=== PATIENT | female | born 1955 | race Caucasian/White ===

== ENCOUNTER → 2018-03-04 13:00 | Outpatient (POV) | payer OTHER, SELFPAY | PROVIDERS: Visit Provider Dermatology | DX: Z00.00 Encounter for general adult medical examination without abnormal findings (principal) ==

== ENCOUNTER → 2018-07-21 15:39 | Outpatient (CLI) | payer MEDICARE, OTHER, SELFPAY ==
--- NOTE | 2018-07-21 15:43 | MM_ITS ---
MM Dig screening mamm BI w/CAD CAD Screening COMPARISON: Digital mammograms with CAD 04/13/2017 and 01/18/2015 INDICATION: There is no personal or family history of breast cancer. TECHNIQUE: Standard CC and MLO images were obtained. R2 CAD reviewed. FINDINGS: Mild to moderate scattered fibroglandular densities are seen throughout both breasts. There is no suspicious lesion in either breast and there are no suspicious microcalcifications. There are stable small nodes in both axilla. IMPRESSION: Fibrofatty parenchyma no suspicious lesion seen. BI-RADS Category: 1 Negative RECOMMENDED FOLLOW-UP: 1YR - 1 YEAR FOLLOW-UP (A letter has been sent to the patient regarding results of the study.)
== END ==
PROVIDERS: Family Provider Internal Medicine Adolescent Medicine; PCP Internal Medicine Adolescent Medicine; Visit Provider Internal Medicine Adolescent Medicine
DX: Z12.31 Encounter for screening mammogram for malignant neoplasm of breast (principal)
CPT/HCPCS: 77067

== ENCOUNTER → 2019-08-10 08:20 | Outpatient (CLI) | payer MEDICARE, OTHER, SELFPAY ==
--- NOTE | 2019-08-10 08:23 | MM_ITS ---
PROCEDURE: MM DIG SCREENING MAMM BI W/CAD Patient Age:64Y CLINICAL INDICATION: SCREENING 64-year-old. No hormones but no new complaints. Noncontributory family history. COMPARISON: [facility] DIG MAMM-SCREEN JEAN-PIERRE from 01/18/2015 [facility] DIG MAMM-SCREEN JEAN-PIERRE W/CAD from 04/13/2017 [facility] MM Dig screening mamm BI w/CAD from 07/21/2018 TECHNIQUE: Standard CC and MLO images were obtained. R2 CAD reviewed. FINDINGS: Moderate residual fibroglandular elements throughout the breast most evident towards superior breast and towards upper-outer quadrant. Minor heterogeneous breast breast pattern again noted but similar to previous studies with no suspicious or new dominant mass. No suspicious calcifications Right breast. No new areas of significant concern. Scattered small areas of densities and minor nodularity is similar to previous studies . Minor calcifications just beneath the skin laterally I believe are related to to the skin/subtle benign dermal calcifications and similar to previous study Left breast but no new areas of concern IMPRESSION: Stable bilateral mammogram. No new areas of significant concern. Bilateral follow-up 1 year recommended BI-RAD Category: 2 Benign Finding(s) FOLLOW-UP: 1YR 1 Year Follow-up (A letter has been sent to the patient regarding results of the study.) Dictated by: Nghia Cantrell MD 08/12/2019 09:34 Electronically signed by Nghia Cantrell MD in [place] 08/12/2019 09:34
== END ==
PROVIDERS: PCP Internal Medicine Adolescent Medicine; Visit Provider Internal Medicine Adolescent Medicine
DX: Z12.31 Encounter for screening mammogram for malignant neoplasm of breast (principal)
CPT/HCPCS: 77067

== ENCOUNTER → 2020-07-24 08:22 | Outpatient (CLI) | payer MEDICARE, OTHER, SELFPAY ==
[2020-07-24 09:13] LABS: Basophils # 0.1 K/mm3 (0-0.2); Eosinophils # 0.2 K/mm3 (0.0-0.4); Eosinophils % 3.3 % (0.1-12.0); Hematocrit 39.4 % (37.0-47.0); Hemoglobin 13.4 g/dL (12.2-16.2); Lymphocytes # 1.6 K/mm3 (0.7-4.5); Lymphocytes % 28.4 % (10-50); Mean Corpuscular HGB Conc 34.1 g/dL (31.8-35.4); Mean Corpuscular Volume 93.8 fl (81-99); Mean Platelet Volume 8.5 fl (7.4-10.4); Monocytes # 0.3 K/mm3 (0.1-1.0); Monocytes % 5.2 % (1.7-9.3); Neutrophils # 3.4 K/mm3 (1.8-7.8); Neutrophils % 62.1 % (37.0-80.0); Platelet Count 214 K/mm3 (142-424); Red Cell Distribution Width 14.6 % (11.5-17.5); White Blood Count 5.5 K/mm3 (4.8-10.8)
[2020-07-24 09:37] LABS: Erythrocyte Sedimentation Rate 20 mm/hr (0-30)
[2020-07-24 11:13] LABS: Chloride 103 mmol/L (98-107); Sodium 139 mmol/L (136-145)
[2020-07-24 11:14] LABS: Potassium 4.4 mmoL/L (3.5-5.1)
[2020-07-24 11:16] LABS: Alanine Aminotransferase 14 U/L (12-78); Albumin Level 4.2 g/dl (3.5-5.0); Albumin/Globulin Ratio 1.6 (1.1-1.8); Alkaline Phosphatase 70 U/L (38-126); Anion Gap 10.4 mEq/L (5-15); Aspartate Amino Transferase 31 U/L (14-36); Bilirubin,Total 0.8 mg/dl (0.2-1.3); Blood Urea Nitrogen 18 mg/dl (7-17); Carbon Dioxide 30 mmol/L (22.0-30.0); Cholesterol 210 mg/dl (140-200); Estimated Glomerular Filt Rate 83 ml/min (>60); GFR (African American) 101 ML/MIN (>60); Globulin 2.7 g/dL (1.3-3.2); Total Protein,Serum 6.9 g/dl (6.3-8.2); Triglycerides 161 mg/dl (30-150); VLDL Cholesterol 32 mg/dL (0-40)
[2020-07-24 11:17] LABS: Calcium 9.7 mg/dl (8.4-10.2); Chol/HDL Ratio 3.1 (1-3.5); Glucose 108 mg/dl (74-100); HDL Cholesterol 67 mg/dl (40-60)
[2020-07-24 11:28] LABS: Direct LDL Cholesterol 105.15 mg/dL (100-129)
[2020-07-24 11:48] LABS: Thyroid Stimulating Hormone 2.88 uIU/mL (0.465-4.68)
== END ==
PROVIDERS: Visit Provider Internal Medicine Adolescent Medicine
DX: M06.9 Rheumatoid arthritis, unspecified (principal); E78.5 Hyperlipidemia, unspecified; E03.9 Hypothyroidism, unspecified
CPT/HCPCS: 36415; 80053; 80061; 84443; 85025; 85651

== ENCOUNTER → 2020-07-25 12:53 | Outpatient (CLI) | payer MEDICARE, OTHER, SELFPAY | PROVIDERS: PCP Internal Medicine Adolescent Medicine; Visit Provider Internal Medicine Adolescent Medicine | DX: M06.9 Rheumatoid arthritis, unspecified (principal) ==

== ENCOUNTER → 2020-08-13 10:18 | Outpatient (CLI) | payer MEDICARE, OTHER, SELFPAY ==
--- NOTE | 2020-08-13 10:27 | MM_ITS ---
PROCEDURE: MM DIG SCREENING MAMM BI W/CAD Digital Breast Tomosynthesis Included CLINICAL INDICATION: SCREENING There is no personal or family history of breast cancer. There has been a previous cyst aspiration left breast with benign findings. COMPARISON: MG [facility] DIG MAMM-SCREEN JEAN-PIERRE W/CAD from 04/13/2017 MG [facility] MM Dig screening mamm BI w/CAD from 07/21/2018 MG MM DIG SCREENING MAMM BI W/CAD from 08/10/2019 TECHNIQUE: Standard CC and MLO images and 3D Tomosynthesis was obtained. R2 CAD reviewed. FINDINGS: Scattered diffuse fibroglandular densities are seen in both breast and the findings are fairly symmetrical bilaterally. There stables small asymmetric glandular elements outer quadrant of each breast. There is no suspicious lesion and no suspicious microcalcifications. IMPRESSION: Fibrofatty parenchyma with no suspicious lesions seen BI-RAD Category: 1 Negative FOLLOW-UP: 1YR 1 Year Follow-up (A letter has been sent to the patient regarding results of the study.) Dictated by: Dr. Satnos Juárez MD 08/15/2020 10:42 Dr. Santos Juárez MD in [place] 08/15/2020 10:42
== END ==
PROVIDERS: PCP Internal Medicine Adolescent Medicine; Visit Provider Internal Medicine Adolescent Medicine
DX: Z12.31 Encounter for screening mammogram for malignant neoplasm of breast (principal)
CPT/HCPCS: 77063; 77067

== ENCOUNTER → 2020-10-08 16:21 | Outpatient (CLI) | payer MEDICARE, OTHER, SELFPAY ==
[2020-10-08 18:23] LABS: Basophils # 0.1 K/mm3 (0-0.2); Basophils % 0.7 % (0.1-2.0); Eosinophils # 0.2 K/mm3 (0.0-0.4); Eosinophils % 2.6 % (0.1-12.0); Hematocrit 40.2 % (37.0-47.0); Lymphocytes # 1.9 K/mm3 (0.7-4.5); Mean Corpuscular HGB Conc 32.3 g/dL (31.8-35.4); Mean Corpuscular Hemoglobin 30.8 pg (27.0-31.2); Mean Corpuscular Volume 95.5 fl (81-99); Mean Platelet Volume 8.2 fl (7.4-10.4); Monocytes # 0.3 K/mm3 (0.1-1.0); Monocytes % 4.5 % (1.7-9.3); Neutrophils % 62.1 % (37.0-80.0); Platelet Count 230 K/mm3 (142-424); Red Cell Distribution Width 14.5 % (11.5-17.5); White Blood Count 6.4 K/mm3 (4.8-10.8)
[2020-10-08 20:17] LABS: Alanine Aminotransferase 12 U/L (12-78); Albumin Level 4.3 g/dl (3.5-5.0); Albumin/Globulin Ratio 1.5 (1.1-1.8); Alkaline Phosphatase 77 U/L (38-126); Anion Gap 10.6 mEq/L (5-15); Aspartate Amino Transferase 28 U/L (14-36); Bilirubin,Total 0.5 mg/dl (0.2-1.3); Blood Urea Nitrogen 16 mg/dl (7-17); Calcium 10.1 mg/dl (8.4-10.2); Carbon Dioxide 31 mmol/L (22.0-30.0); Chloride 102 mmol/L (98-107); Estimated Glomerular Filt Rate 62 ml/min (>60); GFR (African American) 76 ML/MIN (>60); Globulin 2.8 g/dL (1.3-3.2); Glucose 83 mg/dl (74-100); Potassium 4.6 mmoL/L (3.5-5.1); Sodium 139 mmol/L (136-145); Total Protein,Serum 7.1 g/dl (6.3-8.2)
[2020-10-08 20:46] LABS: Thyroid Stimulating Hormone 2.52 uIU/mL (0.465-4.68)
== END ==
PROVIDERS: Visit Provider Nurse Practitioner Family
DX: M06.9 Rheumatoid arthritis, unspecified (principal); E03.9 Hypothyroidism, unspecified
CPT/HCPCS: 36415; 80053; 84443; 85025

== ENCOUNTER → 2021-07-31 08:10 | Outpatient (CLI) | payer MEDICARE, OTHER, SELFPAY ==
[2021-07-31 08:34] LABS: Basophils # 0.1 K/mm3 (0-0.2); Basophils % 1.2 % (0.1-2.0); Eosinophils # 0.3 K/mm3 (0.0-0.4); Eosinophils % 4.9 % (0.1-12.0); Hematocrit 40.2 % (37.0-47.0); Hemoglobin 13.2 g/dL (12.2-16.2); Lymphocytes # 1.9 K/mm3 (0.7-4.5); Mean Corpuscular HGB Conc 32.8 g/dL (31.8-35.4); Mean Corpuscular Hemoglobin 31.3 pg (27.0-31.2); Mean Corpuscular Volume 95.5 fl (81-99); Monocytes # 0.2 K/mm3 (0.1-1.0); Monocytes % 3.8 % (1.7-9.3); Neutrophils # 3.5 K/mm3 (1.8-7.8); Neutrophils % 59.1 % (37.0-80.0); Platelet Count 229 K/mm3 (142-424); Red Blood Count 4.21 M/mm3 (4.20-5.40); Red Cell Distribution Width 13.7 % (11.5-17.5)
[2021-07-31 08:57] LABS: Alanine Aminotransferase 16 U/L (12-78); Albumin Level 4.3 g/dl (3.5-5.0); Albumin/Globulin Ratio 1.6 (1.1-1.8); Alkaline Phosphatase 76 U/L (38-126); Anion Gap 11.5 mEq/L (5-15); Aspartate Amino Transferase 32 U/L (14-36); Bilirubin,Total 0.8 mg/dl (0.2-1.3); Blood Urea Nitrogen 12 mg/dl (7-17); Calcium 9.4 mg/dl (8.4-10.2); Carbon Dioxide 28 mmol/L (22.0-30.0); Chloride 106 mmol/L (98-107); Chol/HDL Ratio 2.9 (1-3.5); Cholesterol 203 mg/dl (140-200); Estimated Glomerular Filt Rate 83 ml/min (>60); GFR (African American) 101 ML/MIN (>60); Globulin 2.7 g/dL (1.3-3.2); Glucose 104 mg/dl (74-100); HDL Cholesterol 69 mg/dl (40-60); Potassium 4.5 mmoL/L (3.5-5.1); Sodium 141 mmol/L (136-145); Triglycerides 107 mg/dl (30-150); VLDL Cholesterol 21 mg/dL (0-40)
[2021-07-31 09:08] LABS: Direct LDL Cholesterol 93.36 mg/dL (100-129)
[2021-07-31 09:14] LABS: Free Thyroxine Index 2.8 ug/dL (5.93-13.13); T4 (Thyroxine) 9.7 ug/dl (5.53-11.0); Triiodothryronine (T3) Uptake 29 % (23.5-40.5)
[2021-07-31 09:23] LABS: Erythrocyte Sedimentation Rate 20 mm/hr (0-30)
[2021-07-31 09:27] LABS: Thyroid Stimulating Hormone 3.41 uIU/mL (0.465-4.68)
[2021-08-06 08:14] LABS: QuantiFERON-TB Gold Plus Negative (Negative)
== END ==
PROVIDERS: Visit Provider Internal Medicine Adolescent Medicine
DX: E03.9 Hypothyroidism, unspecified (principal); E78.5 Hyperlipidemia, unspecified; M06.9 Rheumatoid arthritis, unspecified; Z11.1 Encounter for screening for respiratory tuberculosis
CPT/HCPCS: 36415; 80053; 80061; 84436; 84443; 84479; 85025; 85651; 86480

== ENCOUNTER → 2021-08-16 09:50 | Outpatient (CLI) | payer MEDICARE, OTHER, SELFPAY ==
--- NOTE | 2021-08-16 09:54 | MM_ITS ---
PROCEDURE INFORMATION: Exam: MG Bilateral Screening 3D Mammography Exam date and time: 08/16/2021 9:54 AM Age: 66 years old Clinical indication: Encounter for screening mammogram for malignant neoplasm of breast TECHNIQUE: Imaging protocol: Bilateral screening tomosynthesis and 2D mammography including computer-aided detection (CAD) when performed. COMPARISON: 1. MG MM DIG SCREENING MAMM BI W/CAD 08/13/2020 10:36 AM 2. MG MM DIG SCREENING MAMM BI W/CAD 08/10/2019 8:59 AM FINDINGS: MAMMOGRAPHY: Breast composition: The breast tissue is composed of scattered areas of fibroglandular density. Mass: None. Architectural distortion: None. Calcifications: No suspicious calcifications. Asymmetric density: None. Skin thickening: None. Axillary adenopathy: None. IMPRESSION: No mammographic evidence of malignancy. Annual screening is recommended unless otherwise clinically indicated. ASSESSMENT: BI-RADS Category 1: Negative
== END ==
PROVIDERS: PCP Internal Medicine Adolescent Medicine; Visit Provider Internal Medicine Adolescent Medicine
DX: Z12.31 Encounter for screening mammogram for malignant neoplasm of breast (principal)
CPT/HCPCS: 77063; 77067

== ENCOUNTER → 2021-08-27 15:10 | Outpatient (POV) | payer MEDICARE, OTHER, SELFPAY | PROVIDERS: Visit Provider Dermatology | DX: Z00.00 Encounter for general adult medical examination without abnormal findings (principal) ==

== ENCOUNTER → 2021-09-17 15:06 | Outpatient (POV) | payer MEDICARE, OTHER, SELFPAY | PROVIDERS: Visit Provider Dermatology | DX: Z00.00 Encounter for general adult medical examination without abnormal findings (principal) ==

== ENCOUNTER → 2021-11-25 13:40 | Outpatient (CLI) | payer MEDICARE, OTHER, SELFPAY | PROVIDERS: Visit Provider Nurse Practitioner | DX: U07.1 COVID-19 (principal) | CPT/HCPCS: C9803; U0003; U0005 ==

== ENCOUNTER → 2021-12-18 08:18 | Outpatient (CLI) | payer MEDICARE, OTHER, SELFPAY ==
[2021-12-18 08:51] LABS: Basophils # 0.1 K/mm3 (0-0.2); Eosinophils # 0.2 K/mm3 (0.0-0.4); Hematocrit 38.9 % (37.0-47.0); Hemoglobin 12.8 g/dL (12.2-16.2); Lymphocytes # 1.6 K/mm3 (0.7-4.5); Lymphocytes % 34.7 % (10-50); Mean Corpuscular HGB Conc 32.9 g/dL (31.8-35.4); Mean Corpuscular Hemoglobin 29.8 pg (27.0-31.2); Mean Corpuscular Volume 90.6 fl (81-99); Mean Platelet Volume 8.4 fl (7.4-10.4); Monocytes # 0.2 K/mm3 (0.1-1.0); Monocytes % 4.5 % (1.7-9.3); Neutrophils # 2.6 K/mm3 (1.8-7.8); Neutrophils % 55.8 % (37.0-80.0); Platelet Count 206 K/mm3 (142-424); Red Blood Count 4.29 M/mm3 (4.20-5.40); Red Cell Distribution Width 13.1 % (11.5-17.5); White Blood Count 4.6 K/mm3 (4.8-10.8)
[2021-12-18 09:46] LABS: Erythrocyte Sedimentation Rate 39 mm/hr (0-30)
[2021-12-18 17:30] LABS: Alanine Aminotransferase 17 U/L (12-78); Albumin Level 4.1 g/dl (3.5-5.0); Albumin/Globulin Ratio 1.6 (1.1-1.8); Alkaline Phosphatase 71 U/L (38-126); Anion Gap 8.3 mEq/L (5-15); Aspartate Amino Transferase 33 U/L (14-36); Bilirubin,Total 0.7 mg/dl (0.2-1.3); Blood Urea Nitrogen 11 mg/dl (7-17); Calcium 9.1 mg/dl (8.4-10.2); Carbon Dioxide 30 mmol/L (22.0-30.0); Chloride 106 mmol/L (98-107); Estimated Glomerular Filt Rate 83 ml/min (>60); GFR (African American) 101 ML/MIN (>60); Globulin 2.5 g/dL (1.3-3.2); Glucose 102 mg/dl (74-100); Potassium 4.3 mmoL/L (3.5-5.1); Sodium 140 mmol/L (136-145); Total Protein,Serum 6.6 g/dl (6.3-8.2)
[2021-12-18 17:35] LABS: C-Reactive Protein 4.5 mg/L (0-4)
== END ==
PROVIDERS: PCP Internal Medicine Adolescent Medicine; Visit Provider Internal Medicine Rheumatology
DX: M06.9 Rheumatoid arthritis, unspecified (principal)
CPT/HCPCS: 36415; 80053; 85025; 85651; 86140

== ENCOUNTER → 2022-01-20 10:39 | Outpatient (CLI) | payer MEDICARE, OTHER, SELFPAY ==
[2022-01-20 12:05] LABS: Erythrocyte Sedimentation Rate 34 mm/hr (0-30)
[2022-01-20 12:13] LABS: C-Reactive Protein 3.4 mg/L (0-4)
== END ==
PROVIDERS: Visit Provider Internal Medicine Rheumatology
DX: M05.70 Rheumatoid arthritis with rheumatoid factor of unspecified site without organ or systems involvement (principal); Z79.899 Other long term (current) drug therapy
CPT/HCPCS: 36415; 85651; 86140

== ENCOUNTER → 2022-03-04 14:17 | Outpatient (POV) | payer MEDICARE, OTHER, SELFPAY | PROVIDERS: Visit Provider Dermatology | DX: Z00.00 Encounter for general adult medical examination without abnormal findings (principal) ==

== ENCOUNTER → 2022-08-22 09:46 | Outpatient (CLI) | payer MEDICARE, OTHER, SELFPAY ==
--- NOTE | 2022-08-22 09:51 | MM_ITS ---
PROCEDURE INFORMATION: Exam: MG Bilateral Screening 3D Mammography Exam date and time: 08/22/2022 9:48 AM Age: 67 years old Clinical indication: Screening examination. No family history of breast cancer. TECHNIQUE: Imaging protocol: Bilateral Screening tomosynthesis and 2D mammography including computer-aided detection (CAD) when performed. COMPARISON: 1. MG MM DIG SCREENING MAMM BI W/CAD 08/16/2021 9:59 AM 2. MG MM DIG SCREENING MAMM BI W/CAD 08/13/2020 10:36 AM 3. MG MM DIG SCREENING MAMM BI W/CAD 08/10/2019 8:59 AM 4. MG [facility] MM Dig screening mamm BI w/CAD 07/21/2018 4:10 PM FINDINGS: MAMMOGRAPHY: Breast composition: There are scattered areas of fibroglandular density. Mass: None. Architectural distortion: None. Calcifications: No suspicious calcifications. Asymmetric density: None. Skin thickening: None. Axillary adenopathy: None. IMPRESSION: No mammographic evidence of malignancy. Annual screening is recommended unless otherwise clinically indicated. ASSESSMENT: BI-RADS Category 1: Negative
== END ==
PROVIDERS: PCP Internal Medicine Adolescent Medicine; Visit Provider Internal Medicine Adolescent Medicine
DX: Z12.31 Encounter for screening mammogram for malignant neoplasm of breast (principal)
CPT/HCPCS: 77063; 77067

== ENCOUNTER → 2022-12-20 08:13 | Outpatient (CLI) | payer MEDICARE, OTHER, SELFPAY ==
[2022-12-20 08:37] LABS: Basophils # 0.1 K/mm3 (0-0.2); Basophils % 1.6 % (0.1-2.0); Eosinophils # 0.2 K/mm3 (0.0-0.4); Eosinophils % 4.7 % (0.1-12.0); Hematocrit 38.3 % (37.0-47.0); Hemoglobin 12.7 g/dL (12.2-16.2); Lymphocytes # 1.8 K/mm3 (0.7-4.5); Lymphocytes % 36.6 % (10-50); Mean Corpuscular HGB Conc 33.2 g/dL (31.8-35.4); Mean Corpuscular Hemoglobin 30.8 pg (27.0-31.2); Mean Corpuscular Volume 92.7 fl (81-99); Mean Platelet Volume 8.7 fl (7.4-10.4); Monocytes # 0.2 K/mm3 (0.1-1.0); Monocytes % 4.2 % (1.7-9.3); Neutrophils # 2.6 K/mm3 (1.8-7.8); Neutrophils % 52.8 % (37.0-80.0); Platelet Count 233 K/mm3 (142-424); Red Blood Count 4.13 M/mm3 (4.20-5.40); Red Cell Distribution Width 14.3 % (11.5-17.5)
[2022-12-20 08:54] LABS: Alanine Aminotransferase 17 U/L (12-78); Albumin Level 4.3 g/dl (3.5-5.0); Albumin/Globulin Ratio 1.8 (1.1-1.8); Alkaline Phosphatase 75 U/L (38-126); Anion Gap 7.7 mEq/L (5-15); Aspartate Amino Transferase 26 U/L (14-36); Bilirubin,Total 0.6 mg/dl (0.2-1.3); Blood Urea Nitrogen 12 mg/dl (7-17); Calcium 9.1 mg/dl (8.4-10.2); Carbon Dioxide 30 mmol/L (22.0-30.0); Chloride 109 mmol/L (98-107); Estimated Glomerular Filt Rate 71 ml/min (>60); GFR (African American) 86 ML/MIN (>60); Globulin 2.4 g/dL (1.3-3.2); Glucose 103 mg/dl (74-100); Potassium 4.7 mmoL/L (3.5-5.1); Sodium 142 mmol/L (136-145); Total Protein,Serum 6.7 g/dl (6.3-8.2)
[2022-12-20 09:00] LABS: C-Reactive Protein 2.8 mg/L (0-4)
[2022-12-20 09:05] LABS: Erythrocyte Sedimentation Rate 20 mm/hr (0-30)
== END ==
PROVIDERS: PCP Internal Medicine Adolescent Medicine; Visit Provider Internal Medicine Rheumatology
DX: M05.79 Rheumatoid arthritis with rheumatoid factor of multiple sites without organ or systems involvement (principal); Z79.899 Other long term (current) drug therapy
CPT/HCPCS: 36415; 80053; 85025; 85651; 86140

== ENCOUNTER → 2023-03-17 09:11 | Outpatient (POV) | payer MEDICARE, OTHER, SELFPAY | PROVIDERS: Visit Provider Dermatology | DX: Z00.00 Encounter for general adult medical examination without abnormal findings (principal) ==

== ENCOUNTER → 2023-06-24 07:53 | Outpatient (CLI) | payer MEDICARE, OTHER, SELFPAY ==
[2023-06-24 08:07] LABS: Basophils # 0.1 K/mm3 (0-0.2); Basophils % 1.1 % (0.1-2.0); Eosinophils # 0.2 K/mm3 (0.0-0.4); Eosinophils % 4.2 % (0.1-12.0); Hematocrit 40.2 % (37.0-47.0); Lymphocytes # 1.5 K/mm3 (0.7-4.5); Lymphocytes % 32.3 % (10-50); Mean Corpuscular HGB Conc 32.2 g/dL (31.8-35.4); Mean Corpuscular Hemoglobin 30.4 pg (27.0-31.2); Mean Corpuscular Volume 94.3 fl (81-99); Mean Platelet Volume 8.9 fl (7.4-10.4); Monocytes # 0.2 K/mm3 (0.1-1.0); Monocytes % 3.5 % (1.7-9.3); Neutrophils # 2.7 K/mm3 (1.8-7.8); Neutrophils % 58.9 % (37.0-80.0); Platelet Count 200 K/mm3 (142-424); Red Blood Count 4.27 M/mm3 (4.20-5.40); Red Cell Distribution Width 14.5 % (11.5-17.5); White Blood Count 4.5 K/mm3 (4.8-10.8)
[2023-06-24 08:31] LABS: Chloride 106 mmol/L (98-107); Potassium 4.2 mmoL/L (3.5-5.1); Sodium 140 mmol/L (136-145)
[2023-06-24 08:33] LABS: Alanine Aminotransferase 18 U/L (12-78); Blood Urea Nitrogen 15 mg/dl (7-17); Estimated Glomerular Filt Rate 71 ml/min (>60); GFR (African American) 86 ML/MIN (>60)
[2023-06-24 08:34] LABS: Albumin Level 3.9 g/dl (3.5-5.0); Albumin/Globulin Ratio 1.5 (1.1-1.8); Alkaline Phosphatase 73 U/L (38-126); Anion Gap 10.2 mEq/L (5-15); Aspartate Amino Transferase 28 U/L (14-36); Bilirubin,Total 0.7 mg/dl (0.2-1.3); Calcium 9.6 mg/dl (8.4-10.2); Carbon Dioxide 28 mmol/L (22.0-30.0); Globulin 2.6 g/dL (1.3-3.2); Glucose 99 mg/dl (74-100); Total Protein,Serum 6.5 g/dl (6.3-8.2)
[2023-06-24 08:47] LABS: C-Reactive Protein 1.5 mg/L (0-4)
[2023-06-24 09:35] LABS: Erythrocyte Sedimentation Rate 20 mm/hr (0-30)
== END ==
PROVIDERS: PCP Internal Medicine Adolescent Medicine; Visit Provider Internal Medicine Rheumatology
DX: Z79.899 Other long term (current) drug therapy (principal); M05.79 Rheumatoid arthritis with rheumatoid factor of multiple sites without organ or systems involvement
CPT/HCPCS: 36415; 80053; 85025; 85651; 86140

== ENCOUNTER → 2023-08-24 09:12 | Outpatient (CLI) | payer MEDICARE, OTHER, SELFPAY ==
[2023-08-24 09:39] LABS: Basophils # 0.1 K/mm3 (0-0.2); Basophils % 0.8 % (0.1-2.0); Eosinophils # 0.2 K/mm3 (0.0-0.4); Eosinophils % 2.5 % (0.1-12.0); Hemoglobin 13.8 g/dL (12.2-16.2); Lymphocytes # 1.5 K/mm3 (0.7-4.5); Lymphocytes % 18.9 % (10-50); Mean Corpuscular HGB Conc 34.4 g/dL (31.8-35.4); Mean Corpuscular Hemoglobin 32.5 pg (27.0-31.2); Mean Corpuscular Volume 94.4 fl (81-99); Mean Platelet Volume 8.6 fl (7.4-10.4); Monocytes # 0.4 K/mm3 (0.1-1.0); Monocytes % 4.4 % (1.7-9.3); Neutrophils % 73.3 % (37.0-80.0); Platelet Count 195 K/mm3 (142-424); Red Blood Count 4.23 M/mm3 (4.20-5.40); Red Cell Distribution Width 14.3 % (11.5-17.5); White Blood Count 8.1 K/mm3 (4.8-10.8)
[2023-08-24 09:50] LABS: Alanine Aminotransferase 18 U/L (12-78); Albumin Level 4.3 g/dl (3.5-5.0); Albumin/Globulin Ratio 1.5 (1.1-1.8); Alkaline Phosphatase 72 U/L (38-126); Anion Gap 10.5 mEq/L (5-15); Aspartate Amino Transferase 26 U/L (14-36); Bilirubin,Total 0.8 mg/dl (0.2-1.3); Blood Urea Nitrogen 19 mg/dl (7-17); Calcium 9.6 mg/dl (8.4-10.2); Carbon Dioxide 27 mmol/L (22.0-30.0); Chloride 103 mmol/L (98-107); Chol/HDL Ratio 2.9 (1-3.5); Cholesterol 220 mg/dl (140-200); Estimated Glomerular Filt Rate 62 ml/min (>60); GFR (African American) 75 ML/MIN (>60); Globulin 2.8 g/dL (1.3-3.2); Glucose 107 mg/dl (74-100); HDL Cholesterol 76 mg/dl (40-60); Potassium 4.5 mmoL/L (3.5-5.1); Sodium 136 mmol/L (136-145); Total Protein,Serum 7.1 g/dl (6.3-8.2); Triglycerides 177 mg/dl (30-150); VLDL Cholesterol 35 mg/dL (0-40)
--- NOTE | 2023-08-24 10:04 | MM_ITS ---
PROCEDURE INFORMATION: Exam: MG Bilateral Screening 3D Mammography Exam date and time: 08/24/2023 9:58 AM Age: 68 years old Clinical indication: Screening examination TECHNIQUE: Imaging protocol: Bilateral Screening tomosynthesis and 2D mammography including computer-aided detection (CAD) when performed. COMPARISON: 1. MG MM DIG SCREENING MAMM BI W/CAD 08/22/2022 9:48 AM 2. MG MM DIG SCREENING MAMM BI W/CAD 08/16/2021 9:59 AM FINDINGS: MAMMOGRAPHY: Breast composition: There are scattered areas of fibroglandular density. Mass: None. Architectural distortion: None. Calcifications: No suspicious calcifications. Asymmetric density: None. Skin thickening: None. Axillary adenopathy: None. IMPRESSION: No mammographic evidence of malignancy. Annual screening is recommended unless otherwise clinically indicated. ASSESSMENT: BI-RADS Category 1: Negative
[2023-08-24 10:13] LABS: Direct LDL Cholesterol 103.21 mg/dL (100-129)
[2023-08-24 10:21] LABS: Thyroid Stimulating Hormone 2.39 uIU/mL (0.465-4.68)
[2023-08-26 23:57] LABS: QuantiFERON-TB Gold Plus Negative (Negative)
== END ==
PROVIDERS: PCP Internal Medicine Adolescent Medicine; Visit Provider Internal Medicine Adolescent Medicine
DX: M06.9 Rheumatoid arthritis, unspecified (principal); E03.9 Hypothyroidism, unspecified; Z12.31 Encounter for screening mammogram for malignant neoplasm of breast; E78.49 Other hyperlipidemia
CPT/HCPCS: 36415; 77063; 77067; 80053; 80061; 84443; 85025; 86480

== ENCOUNTER → 2023-08-28 08:44 | Outpatient (POV) | payer MEDICARE, OTHER, SELFPAY ==
[2023-08-28 10:20] VITALS: BP 122/74; PULSE 85; RESP 18; O2SAT 95; BMI 24.5
--- NOTE | 2023-08-28 10:26 | EXP.PAIN.OV ---
HPI Data of Consult Patient: new to practice Consult date: 08/28/23 Requesting Physician: Adalid Lozada CRNA Primary Care Provider: German De La Rosa MD Consult Narrative Reason for consult: Lumbar back pain. Right posterior hip pain. Right anterior thigh pain History of present illness: Ms. Rankin is a 68 year old female who comes our clinic today for initial evaluation regarding chronic low right lumbar back pain patient describes as constant, dull, aching, throbbing at times. Patient also complained of right posterior hip pain that she describes as sharp and stabbing. Her symptoms also include right anterior thigh pain that she describes as dull and aching. She rates her pain today 9/10. Patient is very active. She plays golf. Pickleball. Upon examination she has extreme point tenderness over the right sacroiliac joint. She has positive right Yobani's test. Right Gaenslen's tests positive. Right sacroiliac joint compression test positive. Patient has difficulty transitioning from sitting to standing. Patient has difficulty ambulating any distance due to right posterior hip pain as well as the right low lumbar back pain. Patient has been treated with physical therapy at [facility] for the last 3 weeks. She reports minimal to no relief. Patient takes NSAIDs as well as Tylenol to help with the discomfort. However she reports minimal relief. I discussed with the patient regarding right sacroiliac joint injection. Also, discussed obtaining lumbar MRI to further discern pathology. She wishes to proceed with both. CC: Adalid Lozada CRNA [facility] Disclaimer: The information contained in this section may have been updated after the patient was seen, as this information can be updated by other users. Medical History (Updated 08/28/23 @ 10:29 by Adalid Lozada CRNA) Diverticulosis HLD (hyperlipidemia) HTN (hypertension) Hypothyroidism Rheumatoid arthritis Surgical History (Updated 08/28/23 @ 09:05 by Kina Koenig RN) H/O colonoscopy H/O left wrist surgery Family History (Updated 08/28/23 @ 09:04 by Kina Koenig RN) Other COPD (chronic obstructive pulmonary disease) Cancer Heart disease Social History (Updated 08/28/23 @ 09:05 by Kina Koenig RN) Smoking Status: Never smoker alcohol intake: never substance use type: denies use current occupational status: retired Travel in the last 8 weeks: None Meds Home Medications and Allergies Home Medications Medication Instructions Recorded Confirmed Type aspirin 81 mg tablet,delayed 81 mg PO DAILY 08/13/20 08/13/20 History release (Adult Aspirin Regimen) atorvastatin 20 mg tablet (Lipitor) 20 mg PO DAILY 08/13/20 08/13/20 History etanercept 50 mg/mL (1 mL) 50 mg SQ WEEKLY 08/13/20 08/13/20 History subcutaneous syringe (Enbrel) folic acid 1 mg tablet 2 mg PO DAILY 08/13/20 08/13/20 History ibuprofen 800 mg tablet 800 mg PO Q8H PRN 08/13/20 08/13/20 History levothyroxine 50 mcg tablet 50 mcg PO DAILY 08/13/20 08/13/20 History methotrexate sodium 2.5 mg tablet 7.5 mg PO WEEKLY 08/13/20 08/13/20 History multivitamin,[id number] 1 tab PO DAILY 08/13/20 08/13/20 History (Complete Multivitamin tablet) New Prescriptions to Start Prescriptions: Allergies Allergy/AdvReac Type Severity Reaction Status Date / Time Penicillins Allergy Unknown Verified 08/13/20 15:43 codeine AdvReac Unknown Verified 08/13/20 15:43 Objective Vital signs: Pulse Resp BP Pulse Ox O2 Del Method 85 18 122/74 95 Room Air 08/28/23 10:20 08/28/23 10:20 08/28/23 10:20 08/28/23 10:20 08/28/23 10:20 Assessment and Plan *Assessment and plan (1) Sacroiliitis: Status: Acute Category: Medical Code(s): M46.1 - Sacroiliitis, not elsewhere classified (2) Lumbar back pain with radiculopathy affecting right lower extremity: Status: Acute Category: Medical Code(s):
== END ==
PROVIDERS: PCP Internal Medicine Adolescent Medicine; Visit Provider Nurse Anesthetist, Certified Registered
DX: M46.1 Sacroiliitis, not elsewhere classified (principal); M54.16 Radiculopathy, lumbar region
CPT/HCPCS: 99202; G0463

== ENCOUNTER 2023-09-08 11:44 | Day surgery (SDC) | payer MEDICARE, OTHER, SELFPAY ==
[2023-09-08 11:54] VITALS: BP 141/75; PULSE 74; RESP 16; TEMP 36.7; O2SAT 98; BMI 24.7
[2023-09-08 12:04] VITALS: BP 156/78; PULSE 70; O2SAT 97
[2023-09-08 12:06] VITALS: BP 127/73; BP 156/78; PULSE 70; PULSE 71; RESP 18; O2SAT 96; O2SAT 98
--- NOTE | 2023-09-08 12:15 | EXP.PAIN.PRO ---
Procedure Date: 09/08/23 Time: 11:55 Anesthesiologist:: Adalid Lozada CRNA Complications:: None Pre-procedure Diagnosis:: Right sacroiliitis. Post-procedure Diagnosis:: Same. Indications for Procedure:: Patient is a very pleasant 68-year-old female comes our clinic today for right sacroiliac joint injection. She has extreme point tenderness over the right sacroiliac joint. She has difficulty transitioning from sitting to standing. Patient has difficulty with ambulation. Patient rates her pain 7/10. Procedure Details:: Procedure: Right sacroliliac joint injection under fluoroscopy Informed consent was obtained and the risk and benefits of the procedure were explained to the patient.~ The patient was taken to the procedure room and noninvasive monitors were placed including noninvasive blood pressure cuff and pulse oximeter.~ The patient was placed prone on the procedure table.~ The~ right hip was cleansed using Betadine as a cleansing solution.~ C-arm fluorosocpy was used to view the right SI joint.~ The skin and subcutaneous tissues were anesthetized using Lidocaine 1.5% and a 25-gauge needle.~ After this, a 22-gauge spinal needle was inserted under fluoroscopic guidance into the inferior aspect of the right SI joint.~ Omnipaque dye was injected and a good spread was seen throughout the joint.~ After this, approximately 5 mL of bupivacaine 0.25% and Depo-Medrol 40 mg was incrementally injected into the sacroiliac joint.~ The patient tolerated the procedure well with no complications.~ The patient was observed in the Pain Clinic, then discharged home neurologically intact.~ Plan and Disposition:: Patient was discharged without incident.
== END 2023-09-08 12:06 | disposition home or self-care (01) ==
PROVIDERS: PCP Internal Medicine Adolescent Medicine; Visit Provider Nurse Anesthetist, Certified Registered
DX: M46.1 Sacroiliitis, not elsewhere classified (principal)
CPT/HCPCS: 27096; G0260; J1040

== ENCOUNTER → 2023-09-14 09:26 | Outpatient (CLI) | payer MEDICARE, OTHER, SELFPAY ==
--- NOTE | 2023-09-14 09:32 | XR_ITS ---
FINAL REPORT TECHNIQUE: Chest PA & Lateral CLINICAL HISTORY: PERSISTENT COUGH COMPARISON: None FINDINGS: 2 views of the chest were performed. The heart size is normal. The mediastinum is within normal limits. There is a calcified right hilar lymph node present. There is no acute cardiopulmonary process. There are no pleural effusions. There is no pneumothorax. The bony thorax appears intact. IMPRESSION: No acute cardiopulmonary process. Reviewed, Interpreted and Dictated by Sergio Tyler MD Transcribed by Lashonda Souza Authenticated and [facility]
== END ==
PROVIDERS: PCP Internal Medicine Adolescent Medicine; Visit Provider Nurse Practitioner Family
DX: R05.3 Chronic cough (principal)
CPT/HCPCS: 71046

== ENCOUNTER → 2023-09-23 08:07 | Outpatient (CLI) | payer MEDICARE, OTHER, SELFPAY ==
--- NOTE | 2023-09-23 08:11 | MR_ITS ---
FINAL REPORT CLINICAL HISTORY: .RIGHT BUTTOX AND LEG PAIN. NUMBNESS IN RIGHT JOY FINDINGS: Multiplanar MR imaging of the lumbar spine was performed without contrast. On the sagittal T2-weighted images, disc degeneration is seen at multiple levels. There are endplate changes at multiple levels. There is mild retrolisthesis of L1 on 2 and L2 on 3. There is mild anterolisthesis of L4 on 5. Mild leftward curvature is identified. There is no evidence of fracture. The conus has an unremarkable appearance. T11-12: An annular bulge and facet arthropathy are present. There is no significant canal stenosis or neural foraminal narrowing. T12-L1: An annular bulge is present. There is no significant canal stenosis or neural foraminal narrowing. L1-2: An annular bulge is present. Facet arthropathy and osteophytes are present. There is severe right and moderate left neural foraminal narrowing. L2-3: An annular bulge is present. Facet arthropathy and osteophytes are present. There is severe right and moderate left neural foraminal narrowing. L3-4: An annular bulge and facet arthropathy are present. There is moderate bilateral neural foraminal narrowing. L4-5: An annular bulge and facet arthropathy are present. There is moderate bilateral neural foraminal narrowing. There is a synovial cyst posterior to the left facet joint measuring 10 mm. There is a small synovial cyst posterior to the L5-S1 facet joints. L5-S1: An annular bulge is present. Facet arthropathy and osteophytes are present. There is moderate right and severe left neural foraminal narrowing. IMPRESSION: Multilevel degenerative disc disease and spondylosis. Reviewed, Interpreted and Dictated by Bon Cantu III, MD Transcribed by Winter Wright Authenticated and [facility]
== END ==
PROVIDERS: PCP Internal Medicine Adolescent Medicine; Visit Provider Nurse Practitioner Family
DX: M54.50 Low back pain, unspecified (principal)
CPT/HCPCS: 72148; 76376

== ENCOUNTER → 2023-09-28 09:40 | Outpatient (POV) | payer MEDICARE, OTHER, SELFPAY ==
--- NOTE | 2023-09-28 10:43 | EXP.PAIN.SOA ---
[facility] Pain Management SOAP Note Subjective:: Patient is a pleasant 68-year-old female who presents today for follow-up of right SI injection on 09/08/2023. We are currently treating the patient for low back pain, right hip pain, right sacroiliitis. Today she rates her pain a 2 out of 10. Patient states she has had at least 75% to 80% improvement and that the injection is still providing significant relief. She states she has been able to increase her activity with decreased pain symptoms and overall feels more functional. Patient states she is also continuing to go to physical therapy which has also helped. Patient states she is very active and is planning on doing pickleball in the morning. Her Tito has been reviewed and is appropriate. Review of Systems: General: No recent weight changes, no fever, no sleep disturbances Respiratory: No cough, no shortness of air, no recurring pulmonary infections Cardiovascular/peripheral vascular: No chest pain, no palpitations, no edema, no shortness of breath Gastrointestinal: No new onset incontinence, normal bowel movements reported Genitourinary: No new onset incontinence Musculoskeletal: Low back pain Psychiatric: [Normal mood/affect] Neurological: [Denies weakness in extremities], [denies balance issues] Objective:: Physical Exam: General: Alert and oriented x3, no acute distress, pleasant and cooperative Lungs: Respirations even and unlabored, symmetrical chest expansion Eyes: PERRL Musculoskeletal: Flexion and extension of lumbar [spine] somewhat guarded secondary to pain, [antalgic gait noted] Neurological: Speech clear, no gross sensory deficit Assessment:: Low back pain, right hip pain, right sacroiliitis Plan:: Patient has had significant improvement following her SI injection and does not require any additional injection therapy. Patient will return to clinic in 1 month for reevaluation of symptoms and plan of care Patient has been instructed to contact the clinic with any concerns before the next appointment. Dr. Brice has reviewed this note and agrees with this plan of care. This note was dictated using voice recognition software and make contain errors or omissions. [facility] Disclaimer: The information contained in this section may have been updated after the patient was seen, as this information can be updated by other users. Medical History Diverticulosis HLD (hyperlipidemia) HTN (hypertension) Hypothyroidism Rheumatoid arthritis Surgical History H/O colonoscopy H/O left wrist surgery Family History Other COPD (chronic obstructive pulmonary disease) Cancer Heart disease Social History Smoking Status: Never smoker alcohol intake: never substance use type: denies use current occupational status: retired Travel in the last 8 weeks: None
[2023-09-28 12:45] VITALS: BP 150/81; PULSE 73; RESP 18; O2SAT 97; BMI 24.5
== END ==
PROVIDERS: PCP Internal Medicine Adolescent Medicine; Visit Provider Nurse Practitioner Family
DX: M54.50 Low back pain, unspecified (principal); M25.551 Pain in right hip; M46.1 Sacroiliitis, not elsewhere classified
CPT/HCPCS: 99212; G0463

== ENCOUNTER → 2023-10-01 08:16 | Outpatient (CLI) | payer MEDICARE, OTHER, SELFPAY ==
--- NOTE | 2023-10-01 08:22 | XR_ITS ---
FINAL REPORT CLINICAL HISTORY: POST MENOPAUSAL COMPARISON: None FINDINGS: Using L1-4, the bone mineral density of the spine is 1.226 g/cm2, corresponding to T-score of 1.6, within normal limits. Using the left hip, the bone mineral density of the femoral neck is 0.909 g/cm2, corresponding to a T-score of -0.3, within normal limits. Using the right hip, the bone mineral density of the femoral neck is 0.812 g/cm2, corresponding to a T-score of -0.3, within normal limits. FRAX not reported because all T-scores at or above -1.0. NOTE: T-score: Standard deviation compared with peak bone mass of young adult mean. *Following the recommendations of the International Society of Bone densitometry, classification of hip BMD is based on the lower of two T-scores; total hip or femoral neck. IMPRESSION: Normal bone mineral density of the lumbar spine and hips. Reviewed, Interpreted and Dictated by Sergio Tyler MD Transcribed by Stephanie Singleton Authenticated and . [facility]
== END ==
PROVIDERS: PCP Internal Medicine Adolescent Medicine; Visit Provider Nurse Practitioner Family
DX: Z78.0 Asymptomatic menopausal state (principal)
CPT/HCPCS: 77080

== ENCOUNTER 2023-10-01 10:00 | Outpatient (RCR) | payer MEDICARE, OTHER, SELFPAY ==
--- NOTE | 2023-08-18 09:13 | HMH.PTOPEV ---
PT Outpatient Evaluation Rehab PT Outpatient Evaluation Start: 08/18/23 07:56 Freq: Status: Active Protocol: Document 08/18/23 07:56 COLETTE (Rec: 08/18/23 09:13 COLETTE [id number]) E-signed By Gabbi Senior, PT Outpatient Therapy Subjective History Subjective History Pt is a 68 y/o female who reports insidious onset of RLE pain that starts in the posterior buttocks region and radiates to the lateral thigh and connor. Pt denies distal ankle or foot symptoms. Pt describes pain as a sharp, shooting sensation and like lightning. Pt denies paresthesia or b/b dysfunction . Pt denies having recent imaging of the lumbar spine. Pt reports she was prescribed prednisone which has helped a lot with pain. Pt reports pain is usually worse at night and inhibits her sleep. Pt reports pain is aggravated by sitting and improved with standing/walking. Pt reports she is very active and plays pickleball and golf. Pt reports since taking prednisone she was able to play golf over the weekend and seemed to do okay with this without increased pain. Medical History: Rheumatoid arthritis New diagnosis of cancer in past 12 No months? Chief Complaint Pain Symptom Type Sharp,Shooting Symptoms Relieved By Ice,Prescription Meds,Activity Symptoms Aggravated By Sitting,Bending/Stooping, Lifting Prior Functional Limitations None Current Functional Limitations Lifting,Driving,Sleeping, Sitting,Bending/Stooping Symptom Description Constant but Variable Level of pain today (0-10) 9 Pain scale - at its best (0-10) 3 Pain scale - at its worst (0-10) 9 Lumbopelvic Eval Palapation tenderness bilateral buttock tenderness Yes Lumbar/Sacral Palpation Findings Tenderness Range of Motion Lumbar Spine Active Flexion Range of 70 Motion (degrees) Lumbar Spine Active Extension Range of 18 Motion (degrees) Left Lumbar Spine Lateral Flexion Active 20 Range of Motion (degrees) Right Lumbar Spine Lateral Flexion 20 Active Range of Motion (degrees) Manual Muscle Test Bilateral Knee Extension Strength Grade 5 Normal Knee Flexion Strength Grade 5 Normal Hip Flexion Strength Grade 5 Normal Hip Abduction Strength Grade 4 Good Hip Adduction Strength Grade 4 Good Hip Extension Strength Grade 4 Good DTR Rt Patellar 1+ Lt Patellar 2+ Altered Sensation Bilateral Comment equal and intact to light touch sensation bilaterally Special Tests Hip Adalid (EMMA) Test Negative Right Hip Piriformis Test Negative Right Sciatic Nerve Tension Test Positive Right Unilateral Straight Leg Raise (Lasegue) Positive Right Test Lumbar Long [address] Distraction Test/Manual Positive Traction Oswestry Index Section 1 Pain Intensity The pain comes and goes and is severe Section 2 Personal Care (Washing,Dresing) my way of washing or dressing even though it causes some pain Section 3 Lifting I can lift heavy weights without extra pain Section 4 Walking I have some pain when walking but it does not increase with distance Section 5 Sitting Pain prevents me from sitting for more than 1/2 hour Section 6 Standing I cannot stand more than 1 hour without increasing pain Section 7 Sleeping Because of my pain, my normal night's sleep is less than 6 hours sleep Section 8 Social Life Pain has no significant effect on my social life apart from limiting Section 9 Traveling I get some pain when traveling , but none of my usual forms of travel m Section 10 Changing Degreee of Pain My pain is gradually getting worse Score and Risk Level Oswestry Sc 20 Oswestry Risk Level Moderate Disability Outpatient Therapy Assessment Impairments Problems/Impairmments Palpation Tenderness,Impaired Range of Motion,Impaired Strength,Impaired Sitting, Impaired Lifting,Impaired Bending,Impaired Recreational Activities,Subjective C/O Pain ,Impaired Self Care/Self Management Prognosis Rehab Potential Good Clinical Impression Consistent with Diagnosis Yes Short Term Goals Number of Weeks 3 Increase Range of Motion Yes: Improve lumbar flexion AROM to at least 75 Decrease Subjective C/O Pain Yes: Improve pain at worst to 7/10 to improve overall QOL Mcfp Goals Number of Weeks 6 Increase Range of Motion Yes: Improve lumbar AROM to WNL Increase Strength Yes: Improve RLE MMT to at least 4+-5/5 to assist with functional activities Increase Ability to Sit Yes Restore Ability to Lift Objects to Waist Yes: 10# with proper mechanics Level to prevent future injuries and perform ADLs Improve Ability to Bend Yes: demonstrate lumbar flexion to 80-90 degrees without pain Decrease Subjective C/O Pain Yes: Improve pain at worst to 5/10 to improve overall QOL Improve Self Care/Self Management Yes: Improve RYAN score to 10 to improve overall QOL Patient to be Ind w/ Advanced HEP Yes Outpatient Therapy Plan of Care Treatment Plan May Include Therapeutic Exercise Including Home Yes Exercise Program Manual Therapy Techniques Yes Neuromuscular Re-education Yes Therapeutic Activities to Return to Yes Previous Functional/Work Level ADL/Self Care Education Yes Mechanical Traction Yes Dry Needling Yes Thermal Modalities Yes Electrical Stimulation Yes Ultrasound/Phonophoresis Yes Iontophoresis Yes Massage Yes Group Therapy for Medicare Yes Eval/Re-Eval Yes Frequency Times per week 2 Duration Number of Weeks 4-6 Addendums This patient is a candidate for social No or vocational rehab? Patient/Guardian verbally acknowledges Yes understanding of treatment program and consents to further treatment? Patient/Guardian verbally acknowledges Yes understanding of diagnosis, prognosis and goals for treatment? Shoulder/Elbow Eval Shoulder Objective Measurements Elbow Objective Measurements PHYSICIAN CERTIFICATION: I certify the specified therapy services for Itzel Rankin are required, authorized, and reviewed every 30 days.
--- NOTE | 2023-09-17 11:00 | HMH.RHREAS ---
Rehab Reassessment Rehab OP Re-assessment Start: 08/18/23 07:56 Freq: Status: Active Protocol: Document 09/17/23 09:58 COLETTE (Rec: 09/17/23 11:00 COLETTE [id number]) E-signed By Gabbi Senior, PT Oswestry Index Section 1 Pain Intensity The pain comes and goes and is very mild Section 2 Personal Care (Washing,Dresing) change my way of washing or dressing in order to avoid pain Section 3 Lifting I can lift heavy weights, but it gives me extra pain Section 4 Walking I have some pain when walking but it does not increase with distance Section 5 Sitting I can sit in my favorite chair for as long as I like Section 6 Standing I have some pain on standing, but it does not increase with time Section 7 Sleeping I get pain in bed, but it does not prevent me from sleeping well Section 8 Social Life My social life is normal and gives me no extra pain Section 9 Traveling I get some pain when traveling , but none of my usual forms of travel m Section 10 Changing Degreee of Pain My pain fluctuates, but overall is definitely getting better Score and Risk Level Oswestry Sc 7 Oswestry Risk Level Mild Disability Rehab Re-assessment Subjective Subjective Pt reporst she is 75% better since starting PT. Pt reports pain at worst as 3/10 within the last week. Pt reports pain is still agrravated by prolonged sitting. Pt denies recent radicular symptoms. Pt reports she was able to walk 2 miles without low back pain recently. Pt reports compliance with her HEP which is helping. Pt reports she returns to pain management on the and is getting a lumbar spine MRI on the . Objective Objective Notes Lumbar AROM: 90 flex, 25 ext, 25 LF LE MMT: 4+/5 hip strength, 5/5 knee flex/ext, 5/5 ankle DF Assessment Progress Assessment Progressing as Expected Assessment Notes Pt has attended 9 PT visits consisting of aerobic exercise , LE stretching/strengthening, core strengthening, lumbar extension based program, neural glides, manual therapy, modalities, and HEP with good tolerance. Pt demonstrated improved lumbar AROM, LE strength, TTP, RYAN score and exercise tolerance since the initial evaluation. Pt continues to demonstrate residual hip weakness and minimal pain with sitting/ lifting activities. Pt would continue to benefit from skilled PT to further improve pain severity, LE strength, and functional activity tolerance to assist with return to PLOF. Patient goals met ST/2 LT/8 Goals Not Met sitting tolerance, lifting, and hip strength Revised Goals n/a Plan Plan Continue initial POC Frequency of Therapy 2x/week Duration of therapy 2 more weeks Time and Billing Re-Eval Time 10 Re-Eval Billing Units 1 PHYSICIAN CERTIFICATION: I certify the specified therapy services for Itzel V McIlvain are required, authorized, and reviewed every 30 days.
== END 2023-10-01 11:00 | disposition home or self-care (01) ==
LOC: PT 10:00
PROVIDERS: PCP Internal Medicine Adolescent Medicine; Visit Provider Internal Medicine Adolescent Medicine
DX: M54.31 Sciatica, right side (principal); M54.16 Radiculopathy, lumbar region
CPT/HCPCS: 20560; 97010; 97014; 97035; 97110; 97140; 97163; 97164; 97530; G0283

== ENCOUNTER 2024-08-31 14:47 | Outpatient (CLI) | payer MEDICARE, OTHER, SELFPAY ==
--- OUTSIDE RECORDS SUMMARY | 2024-08-31 14:50 | XMS_ITS | Continuity of Care Document ---
Author Organization Unknown Allergies, Adverse Reactions and Alerts Description Reaction Penicillin yeast infection Penicillin yeast infection Immunizations Service date Cpt code Cvx code Description Dose Route description Clinician Lot number Client immunization id [id number] PPD 0.1 cc Left Lower Forearm Lupe Nolan [id number] 88110 [id number] 69614 208 Covid Pfizer 0.3 mL [id number] 61413 70266290 51330 PPD .1 cc Right Lowe r Forearm Sandrita Graham [id number] 40913 [phone] 65429 135 Fluzone High Dose 0.7 mL Right Deltoid Layton Billy [id number] 88353 54517837 95643 PPD .1 cc Left Lower Forearm Cori Sprague 109593 32936 [phone] 79920 135 Fluzone High Dose 0.5 mL Left Deltoid Sandrita Graham [id number] 38700 67812848 41429 158 Influenza-Fluz one 3+years (NON-MEDICARE) .5 cc Left Deltoid [facility] [id number] 61099 [id number] 91611 208 Covid Pfizer 0.3 mL [id number] 50941 11781325 87329 115 Adacel (Tdap) 0.5 cc Left Deltoid Kavitha Miller [id number] 71196 51974655 59560 133 Prevnar PCV-13 (Pneumococcal conjugate 13) 0.5 cc Right Deltoid Sandrita Graham [id number] 74421 [phone] 79032 135 Fluzone High Dose 0.5 mL Right Deltoid Sergio Gray [id number] 09551 50215823 57844 33 Pneumovax 23 .5 [facility] 77412 45436324 37032 208 Covid Pfizer 0.30 mL [id number] 02233 10583875 19890 158 Influenza-Fluz one 3+years (NON-MEDICARE) .5 cc Left Deltoid [facility] 187752 20948 [id number] 55504 135 Fluzone High Dose 0.5 mL Left Deltoid Alphonso Mackenzie [id number] 45367 20170709 J3301 Kenalog 40mg 40 mg left deltoid Sebastián Robindebra Chawla [id number] 90870 [phone] 99340 135 Fluzone High Dose 0.5 mL Right Deltoid Cori Sprague [id number] 39526 66826260 98578 33 Pneumovax 23 0.5 mL [facility] [id number] 26832 50979644 91061 PPD 0.1 Right Lowe r Forearm Emy Zapata C [id number] 88384 [id number] Kenalog 1 Right Gluteus Medius lw [id number] 12271 43008778 86779 PPD .1 cc Alphonso Mackenzie R 53984 55249346 08142 135 Fluzone High Dose 0.5 mL Left Deltoid Vanita Quiroga [id number] 07988 05427720 35866 303 Arexvy 0.5 mL Left Deltoid Kirstin Lowery 79T9F 88700 42381693 01470 135 Fluzone High Dose 0.7 mL Right Deltoid Layton Billy [id number] 16689 56682099 30295 135 Fluzone High Dose 0.5 mL [facility] [id number] 57109 57870774 03367 33 Pneumovax 23 .5 cc Left Arm [facility] [employer] [facility] 22808 [phone] 77192 133 Prevnar PCV-13 (Pneumococcal conjugate 13) 0.5 cc Right Deltoid Sandrita Graham [id number] 15427 27245884 59780 33 Pneumovax 23 0.5 mL Left Deltoid [facility] R [id number] 52514 75351414 59670 PPD .1 cc Alphonso Mackenzie R 69304 40553411 51162 158 Influenza-Fluz one 3+years (NON-MEDICARE) .5 cc Left Deltoid [facility] [id number] 14666 53836699 J3301 Kenalog 40mg 40 mg left deltoid Sebastián Robindebra Chawla NMN0363 15553 20131104 Kenalog 1 Right Gluteus Medius lw [id number] 88555 14089223 29802 208 Covid Pfizer 0.3 mL [id number] 27493 46570387 24306 135 Fluzone High Dose 0.5 mL Left Deltoid Earlywine, Vanita N [id number] 42463 01174413 88772 PPD .1 cc Right Lowe r Forearm Sandrita Graham [id number] 26780 86677358 30358 115 Adacel (Tdap) 0.5 cc Left Deltoid TongcharoKavitha pearson [id number] 38225 58503900 85247 PPD .1 cc Left Lower Forearm Cori Sprague Hosea 089101 06820 68773777 07769 158 Influenza-Fluz one 3+years (NON-MEDICARE) .5 cc Left Deltoid [facility] 721275 71668 03969557 10031 208 Covid Pfizer 0.30 mL SP0224 48070 37631211 98671 208 Covid Pfizer 0.3 mL MG4415 57835 25298069 20523 PPD 0.1 Right Lowe r Forearm Emy Zapata [id number] 76644 18376561 01627 303 Arexvy 0.5 mL Left Deltoid Kirstin Lowery 79T9F 84220 17036292 54633 PPD 0.1 cc Left Lower Forearm Lupe Nolan [id number] 15367 99348208 44349 135 Fluzone High Dose 0.5 mL Left Deltoid Sandrita Graham [id number] 58592 54388475 70450 135 Fluzone High Dose 0.5 mL Right Deltoid SpragueCori angel MY032SO 89095 44535182 22432 135 Fluzone High Dose 0.5 mL Left Deltoid Alphonso Mackenzie CE955TE 65516 26011219 J1100 Dexamethasone 4mg Injection 4 mg left deltoid Sergio Gray [id number] 21028 Problems Icd10 code Snomed code Description Diagnosed date Severity Clinician E03.9 [id number] Hypothyroidism, unspecified type 80395674 2 German De La Rosa E78.49 60315222 Other hyperlipidemia 63604980 2 German De La Rosa K57.30 344722327 Diverticulosis o f large intestine without hemorrhage 29501329 2 German De La Rosa Z00.00 361972120 Healthcare maintenance 19776918 0 German De La Rosa Og M77.11 976960359 Right tennis elbow 20160409 0 Khris smith German Og Z87.442 251861213 History of nephrolithiasis 49798385 0 Sandrita Cook L M54.41 318278550 Acute midline lo w back pain with right-sided sciatica 20230810 2 Sheltonson, German Og E78.5 417105172 Hyperlipemia, idiopathic familial 23449348 2 Sandrita Cook L M06.9 83015156 Rheumatoid arthr itis, involving unspecified site, unspecified whether rheumatoid factor present 20230810 2 Estrella German Og E03.9 729718550 Hypothyroidism (acquired) 20170306 2 Sandrita Cook L Z68.25 507186973 BMI 25.0-25.9,adult 20220822 0 Sandrita Cook M06.9 845748425 Rheumatoid arthr itis involving multiple joints 20170306 2 Sandrita Cook L M54.31 Sciatica of right side 66386109 2 Pao Maher Z87.442 899668614 History of nephrolithiasis 94368665 0 Sandrita Cook L M54.31 Sciatica of right side 98983542 2 Pao Maher M06.9 170964422 Rheumatoid arthr itis involving multiple joints 20170306 2 Sandrita Cook L Z68.25 292897024 BMI 25.0-25.9,adult 23754254 0 Sandrita Cook L E03.9 179929845 Hypothyroidism (acquired) 73461295 2 Sandrita Cook L M06.9 51677080 Rheumatoid arthr itis, involving unspecified site, unspecified whether rheumatoid factor present 20230810 2 Estrella German Og E78.5 950642086 Hyperlipemia, idiopathic familial 99725351 2 Sandrita Cook L Z00.00 603292657 Healthcare maintenance 87925309 0 Besson, German Og E78.49 35782010 Other hyperlipidemia 20230810 2 Besson, German Og M54.41 193836816 Acute midline lo w back pain with right-sided sciatica 20230810 2 Besson, German Og M77.11 884906648 Right tennis elbow 79948552 0 B luis German Og K57.30 001981082 Diverticulosis o f large intestine without hemorrhage 20160402 2 German De La Rosa E03.9 12324084 Hypothyroidism, unspecified type 14479879 2 German De La Rosa Encounters Encounter type Encounter date Encounter time Location Clinician Member subscriber id Insurance type ePrescription [id number] [facility] EPIFANIO De La Rosa [id number] MB [employer] [id number] [facility] EP[facility] Sandrita Joyce [id number] MB ePrescription [id number] [facility] EPIFANIO German De La Rosa [id number] MB TEL [phone] 262332 [facility] EPIFANIO De La Rosa [id number] MB TEL [phone] 977580 [facility] EPIFANIO German De La Rosa [id number] MB TEL [id number] 306786 [facility] EPIFANIO German De La Rosa [id number] MB TEL [id number] 152349 [facility] SONIA Sandrita Joyce [id number] MB TEL [phone] 740185 [facility] SONIA Sandrita Joyce [id number] MB TEL [id number] 336824 [facility] EPIFANIO German De La Rosa [id number] MB LAB [id number] [facility] EPIFANIO German De La Rosa [id number] MB [place] PHYS [phone] [id number] [facility] EPIFANIO Sandrita Joyce [id number] MB URG [id number] [facility] EPIFANIO German De La Rosa [id number] MB INJ ONLY [id number] [facility] EPIFANIO Sandrita Joyce [id number] MB TEL [phone] 940140 [facility] EPIFANIO Sandrita Joyce [id number] MB TEL [phone] 466216 [facility] EPIFANIO Sandrita Joyce [id number] MB TEL [id number] 967644 [facility] SONIA German De La Rosa [id number] MB ePrescription [id number] 965562 [facility] EPIFANIO German De La Rosa [id number] MB TEL [id number] 279591 [facility] SONIA Sandrita Joyce [id number] MB TEL [id number] 707140 [facility] EPIFANIO German De La Rosa [id number] MB ePrescription [id number] 710320 [facility] EPIFANIO De La Rosa [id number] MB ePrescription [id number] 292400 [facility] EPIFANIO German De La Rosa [id number] MB ePrescription [id number] [facility] EPIFANIO Sandrita Joyce [id number] MB TEL [id number] 671013 [facility] EPIFANIO De La Rosa [id number] MB TEL [id number] 317039 [facility] EPIFANIO German De La Rosa [id number] MB URG [id number] 920023 [facility] SONIA Maddi McKalpanaes [id number] MB CITLALLI PHYS [id number] 278874 [facility] EPIFANIO Sandrita Joyce [id number] MB TEL [phone] [id number] [facility] SONIA Sandrita Joyce [id number] MB TEL [phone] 303546 [facility] EPIFANIO German De La Rosa [id number] MB INJ ONLY [id number] 422770 [facility] EPIFANIO Sandrita Joyce [id number] MB TEL [id number] 418892 [facility] EPIFANIO De La Rosa [id number] MB TEL [id number] 585688 [facility] EPIFANIO Sandrita Joyce [id number] MB TEL [id number] 277888 [facility] SONIA Sandrita Joyce [id number] MB ePrescription [id number] 909962 [facility] EPIFANIO German De La Rosa [id number] MB URG [id number] 209512 [facility] EPIFANIO German De La Rosa [id number] MB ePrescription [id number] 933233 [facility] EPIFANIO German De La Rosa [id number] MB TEL [id number] 699814 [facility] SONIA German De La Rosa [id number] MB TEL [phone] 767928 [facility] EPIFANIO German De La Rosa [id number] MB ePrescription [id number] 771223 [facility] EPIFANIO German De La Rosa [id number] MB TEL [phone] 718017 [facility] EPIFANIO German De La Rosa [id number] MB TEL [id number] 344531 [facility] EPIFANIO German De La Rosa [id number] MB LAB [id number] 673301 [facility] EPIFANIO German De La Rosa [id number] MB ePrescription [id number] 249695 [facility] EPIFANIO Sandrita Joyce [id number] MB TEL [id number] 059896 [facility] EPIFANIO German De La Rosa [id number] MB ePrescription [id number] 313196 [facility] EPIFANIO German De La Rosa [id number] MB TEL [id number] 572222 [facility] SONIA Sandrita Joyce [id number] MB TEL [id number] 966143 [facility] EPIFANIO Sandrita Joyce [id number] MB CITLALLI PHYS [id number] 681394 [facility] EPIFANIO Sandrita Joyce [id number] MB TEL [id number] 566751 [facility] EPIFANIO De La Rosa [id number] MB Medications Id ndc Id other Name Dose Form Sig Duration Frequency Start date Quantity Refill Prescribed npi 79727 65980 0 88677 ibupro fen 800 MG table t 1 tab( s) oral ly 3 time s a day prn 90 days 3 times a day prn 180 2 9762359579 39557 79757 0 00342 pantop razole 40 mg delay ed relea se table t 1 tab( s) oral ly once a day 30 days once a day 30 4 2167321216 93839 29845 0 85648 levoth yroxin e 50 MCG (0.05 MG) table t 1 tab( s) oral ly once a day 90 days once a day 90 3 4885633480 03017 53124 1 37650 methot rexate 2.5 mg table t 3 tabs oral ly once a week 84 days once a week 31 36 3 0962601101 33947 94855 0 67479 levoth yroxin e 50 MCG (0.05 MG) table t 1 tab( s) oral ly once a day 90 days once a day 90 3 1005289574 00229 51467 7 33548 simvas tatin 20 mg table t 1 tab( s) oral ly once a day (at bedt brad) 90 days once a day (at bedtime) 90 3 2485180118 16841 08791 0 58694 methoc arbamo l 500 mg table t 2 tab( s) oral ly 4 time s a day 5 day(s) 4 times a day 18 40 5531391508 06993 76249 0 04047 ibupro fen 800 MG table t 1 tab( s) oral ly 3 time s a day prn 90 days 3 times a day prn 180 2 4217322730 75959 61825 0 06115 levoth yroxin e 50 MCG (0.05 MG) table t 1 tab( s) oral ly once a day 90 days once a day 90 3 8071746371 06192 45312 7 20404 simvas tatin 20 mg table t 1 tab( s) oral ly once a day (at bedt brad) 90 days once a day (at bedtime) 90 3 0324980599 39051 54080 6 66684 Zithro max Z-Abebe 250 mg table t 2 tabl ets on the , then 1 tabl et vamshi y for 4 days oral ly once a day 5 days once a day 21 1 pack 0 8176477152 88462 89076 0 58707 methoc arbamo l 500 mg table t 2 tab( s) oral ly 4 time s a day 5 day(s) 4 times a day 18 40 6252389025 19570 43132 0 26830 levoth yroxin e 50 MCG (0.05 MG) table t 1 tab( s) oral ly once a day 90 days once a day 90 3 8654120677 56013 95225 0 70728 ibupro fen 800 MG table t 1 tab( s) oral ly 3 time s a day prn 90 days 3 times a day prn 180 2 4909788448 49709 89227 7 15684 simvas tatin 20 mg table t 1 tab( s) oral ly once a day (at bedt brad) 90 days once a day (at bedtime) 90 3 7653024389 42988 59198 3 27100 folic acid 1 mg table t 2 tab( s) oral ly once vamshi y 90 days once daily 20121103 09 180 2 2128111884 66159 59940 7 49144 simvas tatin 20 mg table t 1 tab( s) oral ly once a day (at bedt brad) 90 days once a day (at bedtime) 90 3 0079661300 81325 34715 0 357182 Doxycy humphries Hyclat e hyclat e 100 mg capsu le 1 cap( s) oral ly 2 time s a day 10 days 2 times a day 20221102 15 20 0 8343430745 27548 41382 0 69669 pantop razole 40 mg delay ed relea se table t 1 tab( s) oral ly once a day 30 days once a day 20221102 13 30 6 8894189519 18650 7 06427 simvas tatin 20 mg table t 1 tab( s) oral ly once a day (at bedt brad) 90 days once a day (at bedtime) 90 3 3754046769 82407 89144 0 97721 ibupro fen 800 MG table t 1 tab( s) oral ly 3 time s a day prn 90 days 3 times a day prn 180 2 7346571027 44619 50304 5 47445 predni SONE 20 mg table t 1 tab( s) oral ly once a day 5 days once a day 548763 09 5 Tablet 0 6448932355 27115 24555 4 687486 Enbrel SureCl ick 50 mg/mL solut ion subc utan eous ly once a week once a week 0842391228 14169 44128 0 64572 pantop razole 40 mg delay ed relea se table t 1 tab( s) oral ly once a day 30 days once a day 30 0 6487996387 29729 98593 7 59057 simvas tatin 20 mg table t 1 tab( s) oral ly once a day (at bedt brad) 90 days once a day (at bedtime) 90 3 7885178991 79697 25279 4 455444 Enbrel SureCl ick 50 mg/mL solut ion subc utan eous ly once a week once a week 6927484723 15617 45299 4 041756 Enbrel SureCl ick 50 mg/mL solut ion subc utan eous ly once a week once a week 7943483190 32311 08362 3 10639 folic acid 1 mg table t 2 tab( s) oral ly once vamshi y 90 days once daily 20121103 09 180 2 6695983241 28152 32016 0 31082 ibupro fen 800 MG table t 1 tab( s) oral ly 3 time s a day prn 90 days 3 times a day prn 180 2 8013531547 23695 81680 0 08717 levoth yroxin e 50 MCG (0.05 MG) table t 1 tab( s) oral ly once a day 90 days once a day 90 3 3196474445 61054 58514 1 94365 methot rexate 2.5 mg table t 3 tabs oral ly once a week 84 days once a week 36 3 5782079978 22760 32231 7 51254 simvas tatin 20 mg table t 1 tab( s) oral ly once a day (at bedt brad) 90 days once a day (at bedtime) 90 3 0926692823 49761 35904 0 19010 levoth yroxin e 50 MCG (0.05 MG) table t 1 tab( s) oral ly once a day 90 days once a day 90 1 7265667396 71428 01544 3 84536 folic acid 1 mg table t 2 tab( s) oral ly once vamshi y 90 days once daily 20121103 09 180 2 9521821786 27487 25195 0 22327 levoth yroxin e 50 MCG (0.05 MG) table t 1 tab( s) oral ly once a day 90 days once a day 90 9 4136083272 63225 99239 3 42262 folic acid 1 mg table t 2 tab( s) oral ly once vamshi y 90 days once daily 20121103 09 180 2 5565031204 02510 03395 0 96144 benzon atate 200 mg capsu le 1 cap( s) oral ly 3 time s a day as need ed for coug h 7 days 3 times a day as needed for cough 467864 13 21 0 6504706735 96281 75508 1 82862 methot rexate 2.5 mg table t 3 tabs oral ly once a week 84 days once a week 31 36 3 8394002193 16986 45216 6 20437 Zithro max Z-Abebe 250 mg table t 2 tabl ets on the , then 1 tabl et vamshi y for 4 days oral ly once a day 5 days once a day 21 1 pack 0 3777337751 18607 34070 4 664670 Enbrel SureCl ick 50 mg/mL solut ion subc utan eous ly once a week once a week 4035492040 23000 15240 0 68154 levoth yroxin e 50 MCG (0.05 MG) table t 1 tab( s) oral ly once a day 90 days once a day 90 1 2339232157 29532 73387 0 06800 levoth yroxin e 50 MCG (0.05 MG) table t 1 tab( s) oral ly once a day 90 days once a day 90 3 4100006545 12400 11385 0 87613 ibupro fen 800 MG table t 1 tab( s) oral ly 3 time s a day prn 90 days 3 times a day prn 180 2 9854613365 98918 84216 0 33110 levoth yroxin e 50 MCG (0.05 MG) table t 1 tab( s) oral ly once a day 90 days once a day 90 3 2501285616 16196 64067 0 98603 benzon atate 200 mg capsu le 1 cap( s) oral ly 3 time s a day as need ed for coug h 7 days 3 times a day as needed for cough 20221102 13 21 0 7679827541 77620 37911 0 16107 ibupro fen 800 MG table t 1 tab( s) oral ly 3 time s a day prn 90 days 3 times a day prn 180 2 1306447133 04206 14407 5 39569 predni SONE 20 mg table t 1 tab( s) oral ly once a day 5 days once a day 09 5 Tablet 0 7659668749 28838 83250 5 43962 predni SONE 20 mg table t 1 tab( s) oral ly once a day 5 days once a day 09 5 Tablet 0 3083854650 22385 49980 1 65794 methot rexate 2.5 mg table t 3 tabs oral ly once a week 84 days once a week 31 36 3 0959639882 80290 68046 0 26828 ibupro fen 800 MG table t 90 days 3 times a day prn 180 2 7286652630 19478 03797 0 57632 pantop razole 40 mg delay ed relea se table t 30 days once a day 30 4 788703853 9 29683 46084 7 81463 simvas tatin 20 mg table t 90 days once a day (at bedtime) 90 3 3128876095 94534 41590 0 02324 levoth yroxin e 50 MCG (0.05 MG) table t 90 days once a day 90 3 808828439 2 12633 49973 7 26350 simvas tatin 20 mg table t 90 days once a day (at bedtime) 90 3 1999326860 11615 05908 6 78226 Zithro max Z-Abebe 250 mg table t 5 days once a day 21 1 pack 0 3090201609 71011 30817 4 514456 Enbrel SureCl ick 50 mg/mL solut ion once a week 7901583856 52436 29620 0 75207 levoth yroxin e 50 MCG (0.05 MG) table t 90 days once a day 90 3 021455068 2 68998 48094 5 41435 predni SONE 20 mg table t 5 days once a day 09 5 Tablet 0 5427752564 75679 67316 1 43692 methot rexate 2.5 mg table t 84 days once a week 31 36 3 6810955609 98789 95356 3 02144 folic acid 1 mg table t 90 days once daily 953333 09 180 2 1905883545 55645 08141 1 07941 methot rexate 2.5 mg table t 84 days once a week 31 36 3 6148732108 21884 11912 0 215186 Doxycy humphries Hyclat e hyclat e 100 mg capsu le 10 days 2 times a day 20221102 15 20 0 7879614960 04394 76748 0 19249 benzon atate 200 mg capsu le 7 days 3 times a day as needed for cough 20221102 13 21 0 4983198517 60850 44183 0 99365 pantop razole 40 mg delay ed relea se table t 30 days once a day 30 1 760578327 9 54834 27643 7 00996 simvas tatin 20 mg table t 90 days once a day (at bedtime) 90 3 5252349207 87471 81702 0 10951 benzon atate 200 mg capsu le 7 days 3 times a day as needed for cough 605442 13 21 0 6812242060 94600 15861 0 98657 ibupro fen 800 MG table t 90 days 3 times a day prn 180 2 9843191994 55822 19992 1 32791 methot rexate 2.5 mg table t 84 days once a week 214003 31 36 3 7207569834 19481 66225 0 45073 levoth yroxin e 50 MCG (0.05 MG) table t 90 days once a day 90 1 500019404 9 82974 46301 0 42467 levoth yroxin e 50 MCG (0.05 MG) table t 90 days once a day 90 1 935055178 2 03640 92250 0 57216 levoth yroxin e 50 MCG (0.05 MG) table t 90 days once a day 90 3 580056613 9 87284 23112 3 33306 folic acid 1 mg table t 90 days once daily 618258 09 180 2 4924980881 39331 26518 7 71804 simvas tatin 20 mg table t 90 days once a day (at bedtime) 90 3 4167829428 54414 16269 0 16645 ibupro fen 800 MG table t 90 days 3 times a day prn 180 2 0492957585 26237 55033 6 43264 Zithro max Z-Abebe 250 mg table t 5 days once a day 21 1 pack 0 0955392407 31966 42133 1 57513 methot rexate 2.5 mg table t 84 days once a week 31 36 3 3016369951 30670 84898 0 31788 ibupro fen 800 MG table t 90 days 3 times a day prn 180 2 0911736854 11223 00370 0 11238 levoth yroxin e 50 MCG (0.05 MG) table t 90 days once a day 90 3 993595147 2 99306 63182 0 21615 levoth yroxin e 50 MCG (0.05 MG) table t 90 days once a day 90 3 720083994 2 71274 44620 0 06460 ibupro fen 800 MG table t 90 days 3 times a day prn 180 2 0482062942 02469 26866 0 28896 pantop razole 40 mg delay ed relea se table t 30 days once a day 20221102 13 30 6 9040846153 86135 84681 7 06373 simvas tatin 20 mg table t 90 days once a day (at bedtime) 90 3 0977222121 40393 07954 0 64965 levoth yroxin e 50 MCG (0.05 MG) table t 90 days once a day 90 3 212207546 9 59340 78982 7 53471 simvas tatin 20 mg table t 90 days once a day (at bedtime) 90 3 7299716414 09690 37820 4 021410 Enbrel SureCl ick 50 mg/mL solut ion once a week 9256118226 66135 92806 0 10854 ibupro fen 800 MG table t 90 days 3 times a day prn 180 2 8492134190 07936 93785 4 997629 Enbrel SureCl ick 50 mg/mL solut ion once a week 5656465749 23553 69683 5 60634 predni SONE 20 mg table t 5 days once a day 09 5 Tablet 0 8638270067 27228 49317 0 71083 methoc arbamo l 500 mg table t 5 day(s) 4 times a day 18 40 8112365066 18508 79294 0 83410 methoc arbamo l 500 mg table t 5 day(s) 4 times a day 18 40 3984948238 32017 10555 3 39775 folic acid 1 mg table t 90 days once daily 20121103 09 180 2 8210501647 76623 06067 0 70565 levoth yroxin e 50 MCG (0.05 MG) table t 90 days once a day 90 3 183786454 2 70966 78624 5 42244 predni SONE 20 mg table t 5 days once a day 09 5 Tablet 0 6919484031 37972 67786 3 67500 folic acid 1 mg table t 90 days once daily 20121103 09 180 2 9251716396 46606 75070 0 71629 ibupro fen 800 MG table t 90 days 3 times a day prn 180 2 3604739742 86197 88976 7 97688 simvas tatin 20 mg table t 90 days once a day (at bedtime) 90 3 2685684620 15067 99987 4 038611 Enbrel SureCl ick 50 mg/mL solut ion once a week 3181960676 55274 28971 0 37385 levoth yroxin e 50 MCG (0.05 MG) table t 90 days once a day 90 1 842579702 2 77537 22394 0 53933 pantop razole 40 mg delay ed relea se table t 1 tab( s) oral ly once a day 30 days once a day 30 4 6259561916 21427 03421 7 88690 simvas tatin 20 mg table t 1 tab( s) oral ly once a day (at bedt brad) 90 days once a day (at bedtime) 90 3 6591853129 41027 84533 0 416974 Doxycy humphries Hyclat e hyclat e 100 mg capsu le 1 cap( s) oral ly 2 time s a day 10 days 2 times a day 963204 15 20 0 8609706036 41304 42869 0 21830 levoth yroxin e 50 MCG (0.05 MG) table t 1 tab( s) oral ly once a day 90 days once a day 90 3 6001651368 47565 77677 4 053744 Enbrel SureCl ick 50 mg/mL solut ion subc utan eous ly once a week once a week 5023230667 15819 14493 5 55488 benzon atate 200 mg capsu le 1 cap( s) oral ly 3 time s a day as need ed for coug h 7 days 3 times a day as needed for cough 789951 13 21 0 5045378017 67602 68390 0 80059 ibupro fen 800 MG table t 1 tab( s) oral ly 3 time s a day prn 90 days 3 times a day prn 180 2 3099809837 84181 95008 0 44140 benzon atate 200 mg capsu le 1 cap( s) oral ly 3 time s a day prn coug h 5 days 3 times a day prn cough 285675 04 15 0 4942170973 86115 57350 1 38722 methot rexate 2.5 mg table t 3 tabs oral ly once a week 84 days once a week 804672 31 36 3 4105642617 81187 60906 1 49540 folic acid 1 mg table t 2 tab( s) oral ly once vamshi y 90 days once daily 023940 09 180 2 0595471686 31199 59162 0 67038 levoth yroxin e 50 MCG (0.05 MG) table t 1 tab( s) oral ly once a day 90 days once a day 90 3 6210401232 45649 43006 0 51929 levoth yroxin e 50 MCG (0.05 MG) table t 1 tab( s) oral ly once a day 90 days once a day 90 3 8806390060
--- NOTE | 2024-08-31 14:52 | MM_ITS ---
PROCEDURE INFORMATION: Exam: MG Bilateral Screening 3D Mammography Exam date and time: 08/31/2024 2:40 PM Age: 69 years old Clinical indication: Screening examination TECHNIQUE: Imaging protocol: Bilateral Screening tomosynthesis and 2D mammography including computer-aided detection (CAD) when performed. COMPARISON: 1. MG MM DIG SCREENING MAMM BI W/CAD 08/24/2023 9:58 AM 2. MG MM DIG SCREENING MAMM BI W/CAD 08/22/2022 9:48 AM FINDINGS: MAMMOGRAPHY: Breast composition: There are scattered areas of fibroglandular density. Mass: No suspicious masses. Architectural distortion: None. Calcifications: No suspicious calcifications. Asymmetric density: None. Skin thickening: None. Axillary adenopathy: None. IMPRESSION: No mammographic evidence of malignancy. Annual screening is recommended unless otherwise clinically indicated. ASSESSMENT: BI-RADS Category 1: Negative.
== END 2024-08-31 23:59 | disposition home or self-care (01) ==
LOC: RAD 14:48
PROVIDERS: PCP Internal Medicine Adolescent Medicine; Visit Provider Internal Medicine Adolescent Medicine
DX: Z12.31 Encounter for screening mammogram for malignant neoplasm of breast (principal)
CPT/HCPCS: 77063; 77067

== ENCOUNTER 2024-12-26 11:14 | Outpatient (CLI) | payer MEDICARE, OTHER, SELFPAY ==
--- NOTE | 2024-12-26 11:18 | XR_ITS ---
FINAL REPORT CLINICAL HISTORY: LEFT FLANK PAIN COMPARISON: None FINDINGS: SINGLE VIEW ABDOMEN A single view of the abdomen was obtained. There is a nonobstructive bowel gas pattern. There are no abnormally dilated loops of small bowel. There is calcification overlying the upper pole of the right kidney, consistent in appearance with a 14 mm right renal stone. No radiopaque stone is noted overlying the left kidney. Tiny pelvic calcifications likely represent phleboliths. Mild levoscoliosis is noted. IMPRESSION: Specific bowel gas pattern, with a calcification overlying the upper pole of the right kidney, consistent with a 14 mm right renal stone. No radiopaque stone is noted overlying the left kidney. Reviewed, Interpreted and Dictated by Merissa Espino MD Transcribed by Lashonda Souza Authenticated and [facility]
== END 2024-12-26 23:59 | disposition home or self-care (01) ==
LOC: RAD 11:15
PROVIDERS: PCP Internal Medicine Adolescent Medicine; Visit Provider Nurse Practitioner Family
DX: R31.29 Other microscopic hematuria (principal); R10.9 Unspecified abdominal pain; Z87.442 Personal history of urinary calculi
CPT/HCPCS: 74018

== ENCOUNTER 2025-01-03 10:39 | Outpatient (CLI) | payer MEDICARE, OTHER, SELFPAY ==
[2025-01-03 11:26] LABS: Blood Urea Nitrogen 17 mg/dl (7-17); Estimated Glomerular Filt Rate 62 ml/min (>60); GFR (African American) 75 ML/MIN (>60)
== END 2025-01-03 23:59 | disposition home or self-care (01) ==
LOC: LAB 10:42
PROVIDERS: PCP Internal Medicine Adolescent Medicine; Visit Provider Nurse Practitioner Family
DX: Z01.812 Encounter for preprocedural laboratory examination (principal)
CPT/HCPCS: 36415; 82565; 84520

== ENCOUNTER 2025-01-05 08:50 | Outpatient (CLI) | payer MEDICARE, OTHER, SELFPAY ==
--- NOTE | 2025-01-05 08:53 | CT_ITS ---
FINAL REPORT TECHNIQUE: Axial CT of the abdomen and pelvis, without and with IV contrast. This study was performed with techniques to keep radiation doses as low as reasonably achievable, (ALARA). Individualized dose reduction techniques using automated exposure control or adjustment of mA and/or kV according to the patient''s size were employed. CLINICAL HISTORY: HX OF NEPHROLITHIASIS FINDINGS: Abdomen: Lung bases are clear. Liver has an unremarkable CT appearance. The spleen, pancreas and adrenal glands are unremarkable. There is a dominant stone in the upper pole right renal calyx measuring 15 mm. No left renal stone is identified. There is no hydronephrosis. Postcontrast imaging of the kidneys shows no mass or obstruction. No bowel obstruction or fluid collection is seen. Pelvis: The appendix is normal. The uterus and ovaries are unremarkable. There is mild sigmoid diverticulosis. Pelvic bowel loops are unremarkable. No fluid collection or adenopathy is seen. IMPRESSION: Dominant 15 mm right renal stone. No mass, hydronephrosis, or obstructing stone. Reviewed, Interpreted and Dictated by Merissa Espino MD Transcribed by Winter Wright Authenticated and [facility]
[2025-01-05] MEDS: IOPAMIDOL-370 (76%);100ML BOTTLE 75 ML IV (09:20)
[2025-01-05] MEDS: SODIUM CHLORIDE 0.9% 10ML SYR (RAD ONLY) 10 ML IV (09:20)
== END 2025-01-05 23:59 | disposition home or self-care (01) ==
LOC: RAD 08:51
PROVIDERS: PCP Internal Medicine Adolescent Medicine; Visit Provider Nurse Practitioner Family
DX: R31.0 Gross hematuria (principal); Z87.442 Personal history of urinary calculi
CPT/HCPCS: 74178; Q9967

== ENCOUNTER 2025-02-15 12:46 | Outpatient (CLI) | payer MEDICARE, OTHER, SELFPAY ==
[2025-02-15 14:35] LABS: Blood Urea Nitrogen 18 mg/dl (7-17); Estimated Glomerular Filt Rate 62 ml/min (>60); GFR (African American) 74 ML/MIN (>60)
== END 2025-02-15 23:59 | disposition home or self-care (01) ==
LOC: RAD 12:50
PROVIDERS: Urology; PCP Internal Medicine Adolescent Medicine; Visit Provider Student in an Organized Health Care Education/Training Program
DX: R31.0 Gross hematuria (principal); N20.0 Calculus of kidney
CPT/HCPCS: 36415; 82565; 84520

== ENCOUNTER 2025-02-16 09:48 | Outpatient (CLI) | payer MEDICARE, OTHER, SELFPAY ==
--- NOTE | 2025-02-16 09:53 | XR_ITS ---
FINAL REPORT CLINICAL HISTORY: GROSS HEMATURIA pt states hx of right kidney stone planning surgery to remove stone FINDINGS: Forestry Scientist imaging was performed. The patient was injected with contrast. Images were obtained at 5, 10, and 15 minutes. Post void imaging was also obtained. On the corset fitter image, there is a 13 mm right renal stone. The bowel gas pattern is unremarkable. After injection of contrast, there is no significant hydronephrosis. The ureters are normal in caliber. No ureteral filling defects identified. Imaging of the bladder demonstrates no bladder filling defect. Postvoid image shows the patient empties to comfort. IMPRESSION: Right renal stone. No hydronephrosis or ureteral filling defect. Reviewed, Interpreted and Dictated by Lurdes Cary MD Transcribed by Stephanie Singleton Authenticated and [facility]
[2025-02-16] MEDS: IOPAMIDOL-370 (76%);100ML BOTTLE 100 ML IV (10:31)
[2025-02-16] MEDS: SODIUM CHLORIDE 0.9% 10ML SYR (RAD ONLY) 10 ML IV (10:31)
== END 2025-02-16 23:59 | disposition home or self-care (01) ==
LOC: RAD 09:50
PROVIDERS: PCP Internal Medicine Adolescent Medicine; Visit Provider Urology
DX: R31.0 Gross hematuria (principal)
CPT/HCPCS: 74400; Q9967

== ENCOUNTER 2025-03-03 13:33 | Outpatient (CLI) | payer MEDICARE, OTHER, SELFPAY ==
--- NOTE | 2025-03-03 13:38 | CT_ITS ---
FINAL REPORT TECHNIQUE: Axial images through the abdomen and pelvis were performed without contrast. This study was performed with techniques to keep radiation doses as low as reasonably achievable, (ALARA). Individualized dose reduction techniques using automated exposure control or adjustment of mA and/or kV according to the patient's size were employed. CLINICAL HISTORY: KIDNEY STONE PROTOCOL COMPARISON: 01/05/2025 FINDINGS: Abdomen: The lung bases are clear. The liver parenchyma is homogeneous. The gallbladder is moderately distended, without evidence of stones, pericholecystic fluid, or wall thickening. The spleen, pancreas, and adrenals are unremarkable. There is marked right hydronephrosis and hydroureter present. There is a 1.3 cm obstructing stone, best seen on coronal image #45. There are multiple smaller stones present in the more distal ureter to the level of the UVJ. Pelvis: The urinary bladder is incompletely distended. The appendix is not visualized. There is no pelvic mass or inflammation. There is moderate descending colonic diverticulosis without evidence of acute inflammatory change. IMPRESSION: Marked right hydronephrosis and hydroureter is present, with a 1.3 cm obstructing stone best seen on coronal images. Multiple smaller stones are present in the more distal ureter to the level of the UVJ. Reviewed, Interpreted and Dictated by Sergio Tyler MD Transcribed by Lashonda Souza Authenticated and [facility]
== END 2025-03-03 23:59 | disposition home or self-care (01) ==
LOC: RAD 13:34
PROVIDERS: PCP Internal Medicine Adolescent Medicine
DX: N20.0 Calculus of kidney (principal)
CPT/HCPCS: 74176

== ENCOUNTER 2025-03-08 09:37 | Outpatient (CLI) | payer MEDICARE, OTHER, SELFPAY ==
--- NOTE | 2025-03-08 09:42 | XR_ITS ---
FINAL REPORT CLINICAL HISTORY: F/U KIDNEY STONES COMPARISON: 12/26/2024 FINDINGS: A single supine view of the abdomen was obtained. Bowel gas pattern is unremarkable except for a moderate amount of stool. There is several right renal calcifications, largest measuring 5 mm. The previously seen 14 mm stone is no longer identified and there has likely been lithotripsy. No left renal stones identified. Osseous structures are within normal limits. IMPRESSION: Presumed right lithotripsy. Small right renal stones. Reviewed, Interpreted and Dictated by Lurdes Cary MD Transcribed by Stephanie Singleton Authenticated and [facility]
== END 2025-03-08 23:59 | disposition home or self-care (01) ==
LOC: RAD 09:39
PROVIDERS: PCP Internal Medicine Adolescent Medicine; Visit Provider Urology
DX: N20.0 Calculus of kidney (principal)
CPT/HCPCS: 74018

== ENCOUNTER 2025-05-01 09:00 | Outpatient (RCR) | payer MEDICARE, OTHER, SELFPAY ==
--- NOTE | 2025-04-05 10:01 | HMH.PTOPEV ---
PT Outpatient Evaluation Rehab PT Outpatient Evaluation Start: 04/05/25 08:51 Freq: Status: Active Protocol: Document 04/05/25 08:51 COLETTE (Rec: 04/05/25 10:01 COLETTE [id number]) E-signed By Gabbi Senior, PT Outpatient Therapy Subjective History Subjective History Pt is a 70 y/o female who reports onset of right-sided low back pain ~6 weeks ago. Pt reports history of the same pain in the past that improved with PT treatment, states she has been performing her exercises daily following discharge until ~6 weeks ago when her was in the hospital. Pt states she also had a 15mm R kidney stone that was treated with lithotripsy on . Pt had a KUB xray on 03/08/25 following the procedure with findings of There is several right renal calcifications, largest measuring 5mm. The previously seen 14 mm stone is no longer identified and there has likely been lithotripsy. Pt denies fever, n/v, b/b dysfunction or hematuria. Pt denies having recent imaging of her low back. Pt reports no change in low back pain since onset. Pt reports she has intermittent radiating pain into the right lateral leg to the knee, denies more distal LE symptoms or paresthesia. Pt reports pain is aggravated by playing golf, pickleball, prolonged standing, and walking (1 mile). Pt states she has recently started her HEP of lumbar extension based exercises which she states decreases intensity of low back and leg pain but has not abolished it. R handed Negative slump test New diagnosis of No cancer in past 12 months? Chief Complaint Pain Symptom Type Dull Symptoms Relieved By Rest/Positioning Symptoms Aggravated Standing,Physical Activity By Current Functional Standing,Recreation Activity,Walking Limitations Symptom Description Constant but Variable Level of pain today 2 (0-10) Pain scale - at its 1 best (0-10) Pain scale - at its 6 worst (0-10) Lumbopelvic Eval Posture Lumbar Spine Posture Neutral Standing Position Assistive device Assistive Devices None / NA Gait Observation General Gait Pattern No Deviations/Normal Observation Palapation tenderness bilateral lumbar spinal Yes tenderness buttock tenderness Yes: R piriformis Lumbar/Sacral Tenderness Palpation Findings Lumbar/Sacral 2/4 TTP Palpation Overall Comment Accessory Movement L-spine Vertebrae Central P/A [place] Accessory Movements that Elicit Symptoms L3 bilateral L4 bilateral Range of Motion Lumbar Spine Active 85 Flexion Range of Motion (degrees) Lumbar Spine Active 15 Extension Range of Motion (degrees) Left Lumbar Spine 15 Lateral Flexion Active Range of Motion (degrees) Right Lumbar Spine 15 Lateral Flexion Active Range of Motion (degrees) Manual Muscle Test Right Knee Extension 5 Normal Strength Grade Knee Flexion 5 Normal Strength Grade Hip Flexion Strength 4+ Good+ Grade Hip Abduction 4 Good Strength Grade Hip Adduction 4 Good Strength Grade Hip Extension 4- Good- Strength Grade Ankle Dorsiflexion 5 Normal Strength Grade DTR Rt Patellar 2+ Lt Patellar 2+ Rt Gastroc/Soleus 2+ Lt Gastroc/Soleus 2+ Altered Sensation Bilateral Comment equal and intact to light touch sensation bilaterally Special Tests Hip Adalid (EMMA) Positive Right Test Sciatic Nerve Negative Left,Negative Right Tension Test Unilateral Straight Negative Left,Negative Right Leg Raise (Lasegue) Test Oswestry Index Section 1 Pain Intensity The pain comes and goes and is moderate Section 2 Personal Care ( change my way of washing or dressing in order to avoid Washing,Dresing) pain Section 3 Lifting I can lift heavy weights without extra pain Section 4 Walking I cannot walk more than 1/2 mile without increasing pain Section 5 Sitting Pain prevents me from sitting for more than one hour Section 6 Standing I cannot stand more than 1/2 hour without increasing pain Section 7 Sleeping I get pain in bed, but it does not prevent me from sleeping well Section 8 Social Life Pain has no significant effect on my social life apart from limiting Section 9 Traveling I get some pain when traveling, but none of my usual forms of travel m Section 10 Changing Degreee of My pain is neither getting better or worse Pain Score and Risk Level Oswestry Sc 17 Oswestry Risk Level Moderate Disability Outpatient Therapy Assessment Impairments Problems/ Palpation Tenderness,Impaired Range of Motion,Impaired Impairmments Strength,Impaired Walking,Impaired Standing,Impaired Sitting,Impaired Lifting,Impaired Recreational Activities,Subjective C/O Pain,Impaired Self Care/Self Management Prognosis Rehab Potential Good Clinical Impression Consistent with Yes Diagnosis Short Term Goals Number of Weeks 3 Decrease Subjective Yes: Improve pain at worst to 4/10 to improve overall C/O Pain QOL Improve Self Care/ Yes Self Management Patient to be Ind w/ Yes 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 2/10 or less Activities Improve Oswestry Yes: Improve score to 12 or less to improve overall QOL Score Decrease Subjective Yes: Improve pain at worst to 2/10 to improve overall C/O Pain QOL Outpatient Therapy Plan of Care Treatment Plan May Include Therapeutic Exercise Yes Including Home Exercise Program Manual Therapy Yes Techniques Neuromuscular Re- Yes education Therapeutic Yes Activities to Return to Previous Functional/Work Level ADL/Self Care Yes Education Mechanical Traction Yes Dry Needling Yes Thermal Modalities Yes Electrical Yes Stimulation Ultrasound/ Yes Phonophoresis Iontophoresis Yes Massage Yes Group Therapy for Yes Medicare Eval/Re-Eval Yes Aquatic Therapy Yes Frequency Times per week 2 Duration Number of Weeks 4-6 Addendums This patient is a No candidate for social or vocational rehab ? Patient/Guardian Yes verbally acknowledges understanding of treatment program and consents to further treatment? Patient/Guardian Yes verbally acknowledges understanding of diagnosis, prognosis and goals for treatment? Eval Complexity PT Charges 40018 - Low Complexity Shoulder/Elbow Eval Shoulder Objective Measurements Elbow Objective Measurements PHYSICIAN CERTIFICATION: I certify the specified therapy services for Itzel Rankin are required, authorized, and reviewed every 30 days.
== END 2025-05-01 23:59 | disposition home or self-care (01) ==
LOC: PT 09:00
PROVIDERS: PCP Internal Medicine Adolescent Medicine; Visit Provider Internal Medicine Adolescent Medicine
DX: M54.31 Sciatica, right side (principal); N20.0 Calculus of kidney; M79.604 Pain in right leg
CPT/HCPCS: 20560; 97014; 97110; 97140; 97161; G0283

== ENCOUNTER 2025-05-09 13:52 | Outpatient (CLI) | payer MEDICARE, OTHER, SELFPAY ==
--- NOTE | 2025-05-09 13:54 | XR_ITS ---
FINAL REPORT CLINICAL HISTORY: right hip pain COMPARISON: None FINDINGS: RIGHT HIP Two views of the right hip demonstrate no acute fracture or dislocation. The joint spaces appear normal. The visualized bony structures are well aligned. No soft tissue abnormality is seen. Mild hypertrophic changes are present in the lower lumbar spine. IMPRESSION: No acute bony abnormality of the right hip. Reviewed, Interpreted and Dictated by Sergio Tyler MD Transcribed by Lashonda Souza Authenticated and [facility]
--- OUTSIDE RECORDS SUMMARY | 2025-05-09 13:59 | XMS_ITS | Referral Summary ---
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 Name Role Phone Unavailable Primary Care Provider Unavailabl e Encounters Date Type Department Care Team Description 02/27/2025 1:31 PM EDT - 02/27/2025 3:04 PM EDT Surgery [facility] [address] [place] [address] Eladio Sutherland Jr., MD RIGHT EXTRACORPOREAL SHOCKWAVE LITHOTRIPSY WITH STENT PLACEMENT 02/27/2025 1:34 PM EDT Anesthesia Event [facility] [address] [place] [phone] German Maharaj DO Zarth, Matthew Tyler, MD 02/27/2025 11:16 AM EDT - 02/27/2025 3:38 PM EDT Hospital Encounter [facility] [address] [place] [address] Eladio Sutherland Jr., MD Kidney stone (Primary Dx) Discharge Disposition: Home or Self Care 02/22/2025 Travel from Last 3 Months Allergies Active Allergy Reactions Criticality Noted Date Comments Penicillins 12/11/2011 Medications levothyroxine (SYNTHROID, LEVOTHROID) 50 MCG tablet Take 1 tablet (50 mcg total) by mouth daily. 3 Active simvastatin (ZOCOR) 20 MG tablet Take 1 tablet (20 mg total) by mouth nightly. 3 Active methotrexate 2.5 MG tabletIndicati ons:Seropositi ve rheumatoid arthritis of multiple sites (HCC) Take 3 tablets (7.5 mg total) by mouth once a week. 36 tablet 3 3 Active etanercept (EnbreL SureClick) 50 mg/mL (1 mL) PnIj Inject 50 mg subcutaneously once a week. 4 mL 6 4 Active doxycycline hyclate (VIBRA-TABS) 100 MG tablet Take 1 tablet (100 mg total) by mouth 2 (two) times daily. 6 tablet 5 Active Active Problems Problem Noted Date Diagnosed Date Hypothyroidism 02/27/2025 Social History Tobacco Use Types Packs/Day Years Used Date Smoking Tobacco: Never Smokeless Tobacco: Never Tobacco Cessation:Counseling Given: Not Answered Alcohol Use Standard Drinks/Week Comments Not Currently 0 (1 standard drink = 0.6 oz pur e alcohol) occasionally Family and Community Support Answer Triston e Recorded Help with Day to Day Activities Not on file 11/20/2023 Feeling Lonely or Isolated Not on file 11/20 Educational Attainment Answer Date Melvin rded Speak language other than Colombian at home Not on file 11/20/2023 Want help with school or training Not on file 11/20/2023 Substance Use Answer Date Recorded Used prescription meds for non-medical reasons N ot on file 11/20/2023 Used illegal drugs past 12 months Not on file 11/20/2023 Comments No Sex and Gender Information Value Date Recorded Sex Assigned at Not on file Legal Sex Female 3:31 PM CDT Gender Identity Not on file Sexual Orientation Not on file Last Filed Vital Signs Vital Sign Reading Time Taken Comments Blood Pressure 162/83 02/27/2025 3:08 PM EDT Pulse 65 02/27/2025 3:08 PM EDT Temperature 36.1 C (97 F) 02/27/2025 3:00 PM EDT Respiratory Rate 16 02/27/2025 3:08 PM EDT Oxygen Saturation 100% 02/27/2025 3:08 PM EDT Inhaled Oxygen Concentration - - Weight 70.5 kg (155 lb 6.4 oz) 02/27/2025 12:09 PM EDT Height 167.6 cm (5' 6 ) 02/27/2025 12:09 PM EDT Body Mass Index 25.08 02/27/2025 12:09 PM EDT Plan of Treatment Not on file Medical Devices Implanted Type Area Breastfeeding Peer Counselor Device Identifier Shelf Expiration Date Model / Serial / Lot Stent Uret Percflx + [id number] - [id number] Implanted:Qty: 1 on 02/27/2025 by Eladio Sutherland Jr., MD at [facility] IMPLANTS Right: Ureter [employer] 09/23/2027 [id number] 20 / / [id number] Total Wrist Arthroplasty Joints Procedures Procedure Name Priority Date/Time Associated Diagnosis Comments ANESTHESIA INTUBATION Routine 02/27/2025 1:38 PM EDT IN CYSTO W/INSERT URETERAL STENT 02/27/2025 1:33 PM EDT Uric acid nephrolithiasis Case Notes ESWL CONF [id number] SPOKE TO JOHN IN LITHOTRIPSY XTRCORP SHOCK WAVE 02/27/2025 1:33 PM EDT Uric acid nephrolithiasis Case Notes ESWL CONF [id number] SPOKE TO JOHN XR ABDOMEN/KUB 1 VW Routine 02/27/2025 11:43 AM EDT from Last 3 Months Results * AN SINGLE LUMEN INTUBATION (02/27/2025 1:38 PM EDT) Surjit Faustin CRNA - 02/27/2025 1:38 PM EDT Surjit Gray CRNA 02/27/2025 1:42 PM Intubation Authorized by: German Maharaj DO Performed by: Surjit Gray CRNA Date/Time: 02/27/2025 1:38 PM Urgency: elective Indications and Patient Condition Indications for airway management: anesthesia and airway protection Spontaneous Ventilation: absent Sedation level: general anesthesia Preoxygenated: yes Patient position: sniffing no Mask difficulty assessment: 2 - vent by mask + OA or adjuvant +/- NMBA no Final Airway Details Final airway type: supraglottic airway Supraglottic airway type: classic Size: 3 Number of attempts at approach: 1 Number of other approaches attempted: 0 us German Maharaj DO ANESTHESIA ORDERABLES Final Result * X-ray abdomen KUB 1 view (02/27/2025 11:43 AM EDT) Anatomical Region Laterality Modality Abdomen X-Ray 02/27/2025 12:1 1 PM EDT Impressions 02/27/2025 12:14 PM EDT 15 mm stone in the right upper quadrant. Images reviewed, interpreted, and dictated by Dr. Kg Madrid. Transcribed by Angy Lopez PA-C. Narrative 02/27/2025 12:14 PM EDT SINGLE VIEW ABDOMEN HISTORY: Renal stone. ABDOMEN: Single view of the abdomen demonstrates a nonspecific bowel gas pattern. There is a 15 mm stone in the right upper quadrant. Degenerative disc disease is noted. Procedure Note Carl aMdrid MD - 02/27/2025 SINGLE VIEW ABDOMEN HISTORY: Renal stone. ABDOMEN: Single view of the abdomen demonstrates a nonspecific bowel gas pattern. There is a 15 mm stone in the right upper quadrant. Degenerative disc disease is noted. IMPRESSION: 15 mm stone in the right upper quadrant. Images reviewed, interpreted, and dictated by Dr. Kg Madrid. Transcribed by Angy Lopez PA-C. Eladio Sutherland Jr., MD IMG DIAGNOSTIC IMAGING ORDERABLES Final Result from Last [address] [place] [address] [place] [id number] MEDICARE PART A B [facility]
--- OUTSIDE RECORDS SUMMARY | 2025-05-09 13:59 | XMS_ITS | Data Portability ---
Author Organization [place] [facility] Address [address] [place] [address] Care Team Providers Care Liner Checker Name Role Phone LASHA MARROQUIN Primary Care Provider Assessment Encounter Date Assessment Date Assessment LastModified by Organization Details LastModified Time 01/23/2025 01/23/2025 ADDENDUM - spoke with Dr. Sepulveda, recommends right ESWL with cystoscopy, right ureteral stent placement + XR IVP - Pt and I discussed over the phone, she agrees. will schedule [email or web address] Not available 01/23/2025 21:59:14 03/02/2025 03/02/2025 Ureteric stent removal performed by clinical staff. Patient not seen by provider. [email or web address] Not available 03/03/2025 11:49:51 03/23/2025 03/23/2025 70-year-old female with a history of renal calculus presenting for post-lithotrips y follow-up. Large calculus resolved; small fragments remain. No metabolic workup planned. Risk factors for stone formation addressed. Renal Calculus Post-Lithotrips y: Large calculus resolved; small fragments remain. No signs indicate need for metabolic workup. Discussed stone-forming risk factors and planned for follow-up KUB in six months. Presence Of Small Renal Calculus Fragments: Small fragments noted post-lithotrips y; no clinical interference needed immediately. Advised on hydration and dietary modifications. Six-month KUB follow-up scheduled. [email or web address] Not available 03/23/2025 14:26:27 Plan of Treatment Reminders Order Date Submit Date Provider Last Modified By Organization Details Last Modified Time Details Appointments RECHECK 2024 11:45A M KAITLYN SEPULVEDA MD Not available Not available Not available Lab urinalysi s panel, auto 2024 0[email or web address], [address], [address], [place], [address], 03/27/2025 10:08:36 urinalysi s panel, auto 2024 025 [email or web address] [facility], [address], [address], [place], [address], 01/23/2025 21:58:39 Referral None recorded. Procedures None recorded. Surgeries None recorded. Imaging None recorded. Medication Orders None recorded. Patient TargetsNo targets recorded. Patient Instructions Encounter Date Encounter Id Patient Instructions Last Modified By Organization Details Last Modified Time 01/23/2025 [id number] eating healthy foods: care instructions [email or web address] Not available 01/23/2025 10:28:08 Body Mass Index: Care Instructions-LC [email or web address] Not available 01/23/2025 10:28:08 See notes above and in HPI to have procedure as above Pt understands and agrees with care plan. No further questions or concerns at this time [email or web address] Not available 01/23/2025 21:58:49 03/23/2025 [id number] - Continue with sufficient hydration and follow dietary guidelines to help prevent new stone formation. - Attend the scheduled KUB scan in six months to monitor the status of the stone fragments. - Seek medical attention if you experience severe discomfort, changes in urinary habits, or any signs of infection. [email or web address] Not available 03/23/2025 14:26:30 Reason for Referral None Reported. Results Created Date Observation Date Name Description Value Unit Range Abnormal Flag Note LastModifiedBy Organization Detail LastModifiedTime 01/24/2001/25/2025 URINE CULTU RE urine culture COLON Y COUNT : 10,00 0 - 100,0 00 CFU/M L Three or more isola cyn; mixed uroge nital emiliana . Not Available [facility] [address], [place], [address], 01/25/2025 11:57:52 01/24/20 25 01/23/2025 urina lysis panel , auto Unknown Analyte Clean Catch Not Available Replaced by [facility] [address], [place], [address], 01/23/2025 10:37:52 01/24/20 25 01/23/2025 urina lysis panel , auto Unknown Analyte Yellow Not Available [facility] [address], [place], [address], 01/23/2025 10:37:52 01/24/20 25 01/23/2025 urina lysis panel , auto Unknown Analyte Clear Not Available [facility] [address], [place], [address], 01/23/2025 10:37:52 01/24/20 25 01/23/2025 urina lysis panel , auto Unknown Analyte 1.015 Not Available [facility] [address], [place], [address], 01/23/2025 10:37:52 01/24/20 25 01/23/2025 urina lysis panel , auto Unknown Analyte 6.5 Not Available [facility] [address], [place], [address], 01/23/2025 10:37:52 01/24/20 25 01/23/2025 urina lysis panel , auto Unknown Analyte 500 Denny/uL Not Available Replaced by [facility] [address], [place], [address], 01/23/2025 10:37:52 01/24/20 25 01/23/2025 urina lysis panel , auto Unknown Analyte Negati ve Not Available Replaced by [facility] [address], [place], [address], 01/23/2025 10:37:52 01/24/20 25 01/23/2025 urina lysis panel , auto Unknown Analyte Trace Not Available [facility] [address], [place], [address], 01/23/2025 10:37:52 01/24/20 25 01/23/2025 urina lysis panel , auto Unknown Analyte Normal Not Available [facility] [address], [place], [address], 01/23/2025 10:37:52 01/24/20 25 01/23/2025 urina lysis panel , auto Unknown Analyte Negati ve Not Available Replaced by [facility] [address], [place], [address], 01/23/2025 10:37:52 01/24/20 25 01/23/2025 urina lysis panel , auto Unknown Analyte Normal Not Available [facility] [address], [place], [address], 01/23/2025 10:37:52 01/24/20 25 01/23/2025 urina lysis panel , auto Unknown Analyte Negati ve Not Available Replaced by [facility] [address], [place], [address], 01/23/2025 10:37:52 01/24/20 25 01/23/2025 urina lysis panel , auto Unknown Analyte Negati ve Not Available [facility] [address], [place], [address], 01/23/2025 10:37:52 03/23/20 25 03/23/2025 urina lysis panel , auto Unknown Analyte Clean Catch Not Available [facility] [address], [place], [address], 03/23/2025 14:23:46 03/23/20 25 03/23/2025 urina lysis panel , auto Unknown Analyte Yellow Not Available [facility] [address], [place], [address], 03/23/2025 14:23:46 03/23/20 25 03/23/2025 urina lysis panel , auto Unknown Analyte Clear Not Available [facility] [address], [place], [address], 03/23/2025 14:23:46 03/23/20 25 03/23/2025 urina lysis panel , auto Unknown Analyte 1.010 Not Available [facility] [address], [place], [address], 03/23/2025 14:23:46 03/23/20 25 03/23/2025 urina lysis panel , auto Unknown Analyte 1.003 - 1.030 Not Available [facility] [address], [place], [address], 03/23/2025 14:23:46 03/23/20 25 03/23/2025 urina lysis panel , auto Unknown Analyte 6.0 Not Available [facility] [address], [place], [address], 03/23/2025 14:23:46 03/23/20 25 03/23/2025 urina lysis panel , auto Unknown Analyte 5.0 - 8.0 Not Available [facility]placed [facility] [address], [place], [address], 03/23/2025 14:23:46 03/23/20 25 03/23/2025 urina lysis panel , auto Unknown Analyte Negati ve Not Available [facility] [address], [place], [address], 03/23/2025 14:23:46 03/23/20 25 03/23/2025 urina lysis panel , auto Unknown Analyte Negati ve Not Available [facility]placed [facility] [address], [place], [address], 03/23/2025 14:23:46 03/23/20 25 03/23/2025 urina lysis panel , auto Unknown Analyte Negati ve Not Available Replaced [facility] [address], [place], [address], 03/23/2025 14:23:46 03/23/20 25 03/23/2025 urina lysis panel , auto Unknown Analyte Negati ve Not Available [facility] [address], [place], [address], 03/23/2025 14:23:46 03/23/20 25 03/23/2025 urina lysis panel , auto Unknown Analyte Negati ve Not Available [facility] [address], [place], [address], 03/23/2025 14:23:46 03/23/20 25 03/23/2025 urina lysis panel , auto Unknown Analyte Negati ve Not Available [facility] [address], [place], [address], 03/23/2025 14:23:46 03/23/20 25 03/23/2025 urina lysis panel , auto Unknown Analyte Normal Not Available [facility] [address], [place], [address], 03/23/2025 14:23:46 03/23/20 25 03/23/2025 urina lysis panel , auto Unknown Analyte Normal Not Available [facility] [address], [place], [address], 03/23/2025 14:23:46 03/23/20 25 03/23/2025 urina lysis panel , auto Unknown Analyte Negati ve Not Available [facility] [address], [place], [address], 03/23/2025 14:23:46 03/23/20 25 03/23/2025 urina lysis panel , auto Unknown Analyte Negati ve Not Available [facility] [address], [place], [address], 03/23/2025 14:23:46 03/23/20 25 03/23/2025 urina lysis panel , auto Unknown Analyte Normal Not Available [facility] [address], [place], [address], 03/23/2025 14:23:46 03/23/20 25 03/23/2025 urina lysis panel , auto Unknown Analyte Normal Not Available [facility] [address], [place], [address], 03/23/2025 14:23:46 03/23/20 25 03/23/2025 urina lysis panel , auto Unknown Analyte Negati ve Not Available [facility] [address], [place], [address], 03/23/2025 14:23:46 03/23/20 25 03/23/2025 urina lysis panel , auto Unknown Analyte Negati ve Not Available [facility] [address], [place], [address], 03/23/2025 14:23:46 03/23/20 25 03/23/2025 urina lysis panel , auto Unknown Analyte Negati ve Not Available [facility] [address], [place], [address], 03/23/2025 14:23:46 03/23/20 25 03/23/2025 urina lysis panel , auto Unknown Analyte Negati ve Not Available [facility] [address], [place], [address], 03/23/2025 14:23:46 02/21/20 25 02/16/2025 XR, abdom en, 1 view No observ ation record ed. [facility] [address], [place], [address], 02/20/2025 08:31:02 03/08/2003/08/2025 XR, abdom en, 1 view No observ ation record ed. [facility] [address], [place], [address], 03/08/2025 16:17:39 04/04/2003/03/2025 CT, abdom en + pelvi s, w/o contr ast No observ ation record ed. BARCODE Not Available 2024 16:19:02 Result Notes None recorded. Procedures Surgical History Date Name Laterality Status Provider Name and Address Organization Details Recorded Time 5 EXTRA CORPOREAL SHOCK WAVE LITHOTRIPSY (SURG) completed [facility] 02/27/2025 15:14:32 8 procedure on wrist completed [facility] 01/23/2025 09:56:07 7 delivery completed [facility] 01/23/2025 09:56:18 Imaging Results None recorded. Procedure Notes None recorded. Medical Equipment None Reported. Allergies Allergen ID Allergen Name Allergen Category Reaction Reaction Severity Criticality Documentation Date Start Date Code Code System Note Provider Name and Address Organization Details Recorded Time 313833 Product containin g penicilli n (product) medicatio n Not available Not available Not available 09/26/20162011 57932 8001 SNOMED Comme nt: Creat ed By: Goldy ballard Brand i;Cre ated Date: 012 9:45: 12 AM; Not Available [facility] 6 09:00:36 Medications Name Sig Start Date Stop Date Status Note LastModified by Organization Details LastModified Time IBU 800 mg tablet Take 1 tablet 3 times a day by oral route. active Not Available Not Available No t Available folic acid 1 mg tablet Daily 05/23 completed Duration : 30 days;Jerel quency: daily;Me dication Descript ion: folic acid; Dosage:1 ; Route:or al; refills: 0; Quantity :30 tablet Not Available Not Available Not Available levothyro xine active Not Available Not Available Not Available folic acid active Not Available Not Available Not Available methotrex ate active Not Available Not Available Not Available simvastat in active Medicati on Descript ion: simvasta tin; Route:or al; refills: 0 Not Available Not Available Not Available Asprin Ec Low Dose active Not Available Not Available Not Available methotrex ate (bulk) 100 % powder 05/23 completed Medicati on Descript ion: methotre xate; Route:co mpoundin g; refills: 0 Not Available Not Available Not Available Enbrel SureClick 50 mg/mL (1 mL) subcutane ous pen injector Inject 1 mL every week by subcutan eous route. active Not Available Not Available No t Available Multi Vitamin active Not Available Not Available Not Available Vitals Date Recorded Body height Body mass index (BMI) Body weight Provider Name and Address Organization Details Last Updated DateTime 01/23/2025 167.64 cm 25 kg/m2 37067.82 g Cony Quinonez [facility] 01/23/2025 09:57:58 Date Recorded Body height Body mass index (BMI) Body weight Provider Name and Address Organization Details Last Updated DateTime 03/02/2025 167.64 cm 25 kg/m2 28672.82 g Mary Lou Lowery [facility] 03/02/2025 11:40:13 Date Recorded Body height Body mass index (BMI) Body weight Provider Name and Address Organization Details Last Updated DateTime 03/23/2025 167.64 cm 24.5 kg/m2 45852.04 g Roberta Tilley [facility] 03/23/2025 14:08:14 Date Recorded Body height Body mass index (BMI) Body weight Provider Name and Address Organization Details Last Updated DateTime 05/23/2019 167.64 cm 25.7 kg/m2 58794.19 g Libertad Urbina [facility] 05/23/2019 14:45:18 Social History Question Answer Notes LastModified by Organizat ion Details LastModified Time Tobacco Smoking Status Never Smoker Libertad Urbina [facility] 05/23/2019 14:45:46 What Is Your Level Of Caffeine Consumption? Occasional [email or web address] Information not available 05/23/2019 Which Of Your Hands Is Dominant? Bilateral [email or web address] Information not available 05/23/2019 Marital Status [email or web address] Informatio n not available 05/23/2019 What Was The Date Of Your Most Recent Tobacco Screening? 03/23/2025 [email or web address] Information not available 03/23/2025 Has Tobacco Cessation Counseling Been Provided? No [email or web address] Information not available 05/23/2019 Sex: Female Functional Status Question Answer Note LastModified by Organizat ion Details LastModified Time Do you use any illicit or recreational drugs? No Information not available 05/23/2019 What is your level of alcohol consumption? Occasional [email or web address] Information not available 05/23/2019 Are you currently employed? No [email or web address] Information not available 05/23/2019 What is your occupation? Retired [email or web address] Information not available 05/23/2019 Mental Status None recorded. Family History Nothing Reported. Medical History Condition Response Coronary Artery Disease N Other N Gout N Kidney Cyst N Kidney Stones Y Enlarged Prostate N Heart Arrhythmia N Erectile Dysfunction N Head Trauma/Injury N Emphysema N Sexually Transmitted Disease N Depression N COPD N Pneumonia N Incontinence N Prostate Problems N Cancer Prostate N Paralysis N Anxiety Disorder N Hemorrhoids N Obesity N Arthritis Y Infertility N Blood Clot N Acid Reflux (GERD) N Cancer N Hematuria N Stroke N Neck Injury N Previous Radiation Therapy? N Neurologic Disorder N Kidney Disease N Heart Conditions N Migraines N Kidney or Bladder Problems N Skin Problems N Constipation N Urinary Problems N Brain Injury N Ulcers N Rheumatic Fever N Prostate Hypertrophy N Bleeding Disorder N Low Testosterone N Tuberculosis N Previous Chemotherapy? N Genetic Disorder N AIDS/HIV N BPH N Urinary Tract Infection N Asthma N Cardiac Disease N Thyroid Disorder N Hepatitis N Included as Review of Systems N PCOS N Anxiety/Depression N Thyroid Disease N Colon Cancer N Hernia N Colon/Rectal Disorders N Ostomy N Glaucoma N Pacemaker N Anesthesia Complications N Genitourinary Disease N Chronic Kidney Disease N Radiation Therapy N Blood Thinners N Bladder or Kidney Problems Y Back Injury N Alcohol Overuse/Alcohol Abuse N High Cholesterol Y High PSA N Nervous System Disorder N Liver Disease N Organ Transplant N Dialysis N Allergies/Hayfever N False Teeth N Chronic Obstructive Pulmonary Disease N Parkinson's Disease N Chemotherapy N Transplant N Anemia Y Immune System Disorder Y Multiple Sclerosis N Back Pain N Chest Pain N Proteinuria N Heart Attack ([place]) N Mental Illness N Neurological Problems N Diabetes N Ovarian Cancer N Seizures/Epilepsy N Genitourinary problem(s) N Congestive Heart Failure (CHF) N Kidney Failure N Sleep Apnea N Bronchitis N Heart Disease N Hypertension N Osteoporosis N Gynecological History Statement/Question Response Female Hormone Problem N # of Pregnancies 1 Abnormal Periods N # of Births 1 Could you be now? N Current Control Method menopause Uterus/Ovaries Problem N Obstetrics History GPAL:G 0 P 0 0 0 0 Past Encounters Encounter ID Performer Location Encounter Start Date Encounter Closed Date Diagnosis/Indication Diagnosis SNOMED-CT Code Diagnosis ICD10 Code Diagnosis Note [id number] LASHA MCLAUGHLIN MD [facility] [address] [place] [address] 05/23/2019 14:26:28 05/26/2019 09:14:36 Rheumatoid arthritis 53488275 M06.9 Controlled medically but with 3 extensor tendon ruptures and intact FDS to middle and ring fingers. Would benefit from radiolunat e fusion, Jack resection versus DRUJ arthroplas ty, and FDS transfer to the ring and small finger extensor tendons. I will have to research which would be better for someone who plays golf, I will talk to the [facility] team and get back to her, or discussed when she calls to schedule [id number] COSME LIPSCOMB PA-C [facility] [address] [facility] [facility] [place] [address] 01/23/2025 09:36:35 01/23/2025 10:35:22 Body mass index 25-29 - overweight 780183859 Z68.25 Kidney stone 36552802 N2 0.0 given stone burden advised procedural management likely R ESWL + right ureteral stent placement, will get Dr. Sepulveda's opinion and get back with patient. Manoj hematuria 76384830 5 R31.0 needs complete workup with cystoscopy + xray IVP vs retrograde pyelograms [id number] FLORESITA SANCHEZ [facility], [facility] [address] [place] [address] 03/02/2025 11:12:52 03/02/2025 11:49:34 [id number] MD CLARE GLOVER JR, [facility] [address] [place] [address] 03/23/2025 13:27:21 03/23/2025 14:28:34 Kidney stone 53230436 N20.0 Health Concerns Section Related Observation LastModified by Organization Detai ls LastModified Time None Recorded Concern Status LastModified by Organization Details LastModified Time None Recorded Advance Directives Directive None Recorded Payers Insurance Date Sequence Insurance Name Policy Number Policy Valdez Covered Member ID Valdez Member ID Guarantor Name 03/02/2025 1 [place]ARE[place] Itzel V McIlvain [id number] Itzel V McIlvain 03/28/2025 2 [employer] SU[employer]AL - [employer] (MEDICARE SUPPLEMENT) Itzel V McIlvain [id number] Itzel V McIlvain Notes Date Note Type Note Provider Name and Address Organization Details Recorded Time 05/23/2019 text/html Hand SurgeryRepo rted bypatient.Hand Dominance:ambidextrou s Location:left Severity:pain level 3/10 Duration:6 months Previous Surgery:none Work Related:no Working:retired from workNotes:Pt states that she had an injection and states a couple days later her tendons ruptured in November. Pt states in january she went for another injection and states her hand was swollen and bruised. Pt states that the injection did help her wrist. Pt states she had a cyst aspirated on her left wrist in November as well. Pt states that her pain is a 3/10 but has been worse at times. Pt states she had taken prednisone in the past for her wrist and it helped a lot. LASHA MCLAUGHLIN MD [address] [place], [address], [facility] 05/23/2019 15:16:44 01/23/2025 text/html Ms. Corrigan is a 70 y/o F with PMH RA, hld, htn who presents today as a new patient referral from [facility] for kidney stone Reviewed PCP OV 12/26/24frank hematuria 3 days prior, left flank pain 2 weeks ago and intermittent since. UA showed small leuk, small blood01/05/25 CT abd/pelv w/wo: dominant stone in the upper pole right renal calyx measuring 15 mm. no left renal stone is identified. no hydronephrosis or obstructing stone started seeing very mild manoj hematuria when wiping after urinating about a month ago.pt states had KUB showing 14 mm right renal stone as well.history of kidney stone in the past many years ago, passed no further pain or manoj hematuria last couple weeks COSME LIPSCOMB PA-C [address] [place], [address], [facility] 01/24/2025 14:31:15 03/23/2025 text/html The patient is a 70-year-old female presenting with follow-up post-extracorporeal shock wave lithotripsy. The initial KUB on March 08 indicated a large renal calculus. Post-procedure KUB shows the large calculus has resolved with small remaining stone fragments. No metabolic workup or further intervention planned. Stone-forming risk factors discussed. Follow-up in six months advised. KAITLYN SEPULVEDA JR, MD [address] [place], [address], [facility] 03/27/2025 10:08:38 OBGyn Episode No OBEpisode recorded.
--- OUTSIDE RECORDS SUMMARY | 2025-05-09 13:59 | XMS_ITS | Encounter Summary ---
Author Organization [employer] ([place], [place], [place], [place]) Address [address] [place] [address] Care Team Providers Care Beer Maker Name Role Phone Unavailable Primary Care Provider Unavailabl e Reason for Visit * Reason Onset Date Comments Medication Refill 12/07/2023 Encounter Details Date Type Department Care Team (Late st Contact Info) Description 12/07/2023 Telephone [facility] Rheumatology [address] [place] [address] Madyson Dorado MD [address] [facility] [address] [place] [address] Medication Refill Social History Tobacco Use Types Packs/Day Years Used Date Smoking Tobacco: Never Smokeless Tobacco: Never Alcohol Use Standard Drinks/Week Comments Not Currently 0 (1 standard drink = 0.6 oz pur e alcohol) occasionally Family and Community Support Answer Triston e Recorded Help with Day to Day Activities Not on file 11/20/2023 Feeling Lonely or Isolated Not on file 11/20 Educational Attainment Answer Date Melvin rded Speak language other than Tunisian at home Not on file 11/20/2023 Want help with school or training Not on file 11/20/2023 Substance Use Answer Date Recorded Used prescription meds for non-medical reasons N ot on file 11/20/2023 Used illegal drugs past 12 months Not on file 11/20/2023 Comments Unknown Sex and Gender Information Value Date Recorded Sex Assigned at Not on file Legal Sex Female 3:31 PM CDT Gender Identity Not on file Sexual Orientation Not on file documented as of this encounter Miscellaneous Notes * Telephone Encounter - Radha Aslinger - 12/07/2023 9:19 AM EST [facility] fax[facility] to [phone]. etanercept (EnbreL SureClick) 50 mg/mL (1 mL) PnIj BOLTING COAL MINER documented in this encounter Plan of Treatment Not on file documented as of this encounter Visit Diagnoses Not on filedocumented in this encounter
--- OUTSIDE RECORDS SUMMARY | 2025-05-09 13:59 | XMS_ITS | Clinical Summary ---
Author Organization [employer] ([place], [place], [place], [place]) Address [address] [place] [address] Care Team Providers Care Fisher Lampara Net Name Role Phone Unavailable Primary Care Provider Unavailabl e Allergies Active Allergy Reactions Criticality Noted Date [...] Problem Noted Date Diagnosed Date Hypothyroidism 02/27/2025 Encounters Date Type Department Care Team Description 02/27/2025 1:34 PM EDT Anest[facility] [address] [place] [phone] German Maharaj, Chema Estrella MD 02/27/2025 1:31 PM EDT - 02/27/2025 3:04 PM EDT Surgery [facility] [address] [place] [address] Eladio Sutherland Jr., MD RIGHT EXTRACORPOREAL SHOCKWAVE LITHOTRIPSY WITH STENT PLACEMENT 02/27/2025 11:16 AM EDT - 02/27/2025 3:38 PM EDT Hospital Encounter [facility] [address] [place] [address] Eladio Sutherland Jr., MD Kidney stone (Primary Dx) Discharge Disposition: Home or Self Care 02/22/2025 Travel from Last 3 Months Family History Medical History Relation Name Comments Cancer Other Hypertension Other Relation Name Status Comments Other Social History Tobacco Use Types Packs/Day Years [...] Date Melvin rded Speak language other than [place] Citizen at home Not on file 11/20/2023 Want [...] 02/27/2025 12:09 PM EDT Plan of Treatment Health Maintenance Due Date Last Done Comments Medicare Initial AWV G0438 CT Colonography 1955 Colonoscopy 1953 Colorectal Cancer Screening 1953 DXA SCAN 1953 FOBT/FIT 1953 Fit-DNA (Cologuard) 1953 Sigmoidoscopy 1953 Depression Screening (12+) 1965 Hepatitis C Screening 1971 DTAP/TDAP/TD VACCINES (1 - Tdap) 01/23/1972 Shingles Vaccine (Zoster) (1 of 2) 01/23/1972 Breast Cancer Screening 1993 Respiratory Syncytial Virus (RSV) Adult or (1 - Risk 60-74 years 1-dose series) 2013 COVID-19 VACCINE (5 - 2023-2 5 season) 2024 07/30/2022, 06/26/2021, 01/10/2021, Additional history exists Falls Risk Screening 11/02/2024 Influenza Vaccine (#1) 2025 2, 07/31/2021, 07/25/2020, Additional history exists Tobacco Cessation Counseling and Screening (12+) 02/27/2026 02/27/2025 Pneumococcal 50+ years Completed 07/31/2021, 2017 Medical Devices Implanted Type Area Sheet Metal Welder Device Identifier Shelf Expiration Date Model / Serial / Lot Stent Uret Percflx + [id number] - [id number] Implanted:Qty: 1 on 02/27/2025 by Eladio Sutherland Jr., MD at [facility] IMPLANTS Right: [employer]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 [employer]OLOG[employer] 09/23/2027 [id number] 20 / / [id number] Total Wrist Arthroplasty Joints Procedures Procedure Name Priority Date/Time Associated Diagnosis Comments ANESTHESIA INTUBATION Routine 02/27/2025 1:38 PM EDT ID CYSTO W/INSERT URETERAL STENT 02/27/2025 1:33 PM EDT Uric acid nephrolithiasis Case Notes ESWL CONF [id number] SPOKE TO JOHN ID LITHOTRIPSY XTRCORP SHOCK WAVE 02/27/2025 1:33 PM EDT Uric acid nephrolithiasis Case Notes ESWL CONF [id number] SPOKE TO JOHN XR ABDOMEN/KUB 1 VW Routine 02/27/2025 11:43 AM EDT from Last 3 Months Results * AN SINGLE LUMEN INTUBATION (02/27/2025 1:38 PM EDT) Narrative Surjit Gray CRNA - 02/27/2025 1:38 PM EDT Surjit [...] disc disease is noted. Procedure Note Carl Madrid MD - 02/27/2025 SINGLE VIEW ABDOMEN HISTORY: [...] Angy Lopez PA-C. Eladio Sutherland Jr., MD [facility] ORDERABLES Final Result from Last [address] [place] [address] [place] [address] [address] [place] [address] [place] [address]
--- OUTSIDE RECORDS SUMMARY | 2025-05-09 13:59 | XMS_ITS | Encounter Summary ---
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 Name Role Phone Unavailable Primary Care Provider Unavailabl e Reason for Visit * Reason Onset Date Comments Copy of form 09/08/2022 Encounter Details Date Type Department Care Team (Late st Contact Info) Description 09/08/2022 Telephone [facility] - [address] [address] Madyson Dorado MD [address] [place] [address] Copy of form Social History Tobacco Use Types Packs/Day Years Used Date Smoking Tobacco: Never Assessed Comments Unknown Sex and Gender Information Value Date Recorded Sex Assigned at Not on file Legal Sex Female 3:31 PM CDT Gender Identity Not on file Sexual Orientation Not on file documented as of this encounter Miscellaneous Notes * Telephone Encounter - She José - 10/10/2022 2:01 PM EST Scanned 09/08/2022. Printed and mailed to address on file. 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 WEIGHT AND STRENGTH TESTER documented in this encounter Plan of Treatment Not on file documented as of this encounter Visit Diagnoses Not on filedocumented in this encounter
== END 2025-05-09 23:59 | disposition home or self-care (01) ==
LOC: RAD 13:54
PROVIDERS: PCP Internal Medicine Adolescent Medicine; Visit Provider Physician Assistant
DX: M25.551 Pain in right hip (principal)
CPT/HCPCS: 73502

== ENCOUNTER 2025-05-24 14:00 | Outpatient (POV) | payer MEDICARE, OTHER, SELFPAY ==
--- OUTSIDE RECORDS SUMMARY | 2025-05-24 14:05 | XMS_ITS | Data Portability ---
Author Organization [place] [facility] [place] [facility] Address [address] [facility] [facility] [address] [place] [address] Care Team Providers Care Customer Records Division Supervisor Name Role Phone LASHA MARROQUIN Primary Care Provider Assessment Encounter Date Assessment Date Assessment LastModified by Organization Details LastModified Time 01/23/2025 01/23/2025 ADDENDUM - spoke with Dr. Sepulveda, recommends right ESWL with cystoscopy, right ureteral stent placement + XR IVP - Pt and I discussed over the phone, she agrees. will schedule [email or web address] Not available 01/23/2025 21:59:14 03/02/2025 03/02/2025 Ureteric stent removal performed by clinical staff. Patient not seen by provider. Not available 03/03/2025 11:49:51 03/23/2025 03/23/2025 70-year-old [...] Lab urinalysi s panel, auto 2024 025 [facility], [address], [address], [place], [address], 03/27/2025 10:08:36 urinalysi s panel, auto 2024 025 [email or web address] [facility] With [facility], [address], [address], [place], [address], 01/23/2025 21:58:39 Referral None recorded. Procedures None recorded. Surgeries None recorded. Imaging None recorded. Medication Orders None recorded. Patient TargetsNo targets recorded. Patient Instructions Encounter Date Encounter Id Patient Instructions Last Modified By Organization Details Last Modified Time 01/23/2025 [id number] eating healthy foods: care instructions [email or web address] Not available 01/23/2025 10:28:08 Body Mass Index: Care Instructions-LC [email or web address] Not available 01/23/2025 10:28:08 See notes above and in HPI to have procedure as above Pt understands and agrees with care plan. No further questions or concerns at this time [email or web address] Not available 01/23/2025 21:58:49 03/23/2025 [id number] - Continue with sufficient hydration and follow [...] mixed uroge nital emiliana . Not Available [facility] [address], [place], [address], 01/25/2025 11:57:52 01/24/20 25 01/23/2025 urina lysis panel , auto Unknown Analyte Clean Catch Not Available Replaced by [facility] [facility] [address], [place], [address], 01/23/2025 10:37:52 01/24/20 25 01/23/2025 urina lysis panel , auto Unknown Analyte Yellow Not Available [facility] [address], [place], [address], 01/23/2025 10:37:52 01/24/20 25 01/23/2025 urina lysis panel , auto Unknown Analyte Clear Not Available [facility] With [facility] [address], [place], [address], 01/23/2025 10:37:52 01/24/20 25 01/23/2025 urina lysis panel , auto Unknown Analyte 1.015 Not Available [facility] With [facility] [address], [place], [address], 01/23/2025 10:37:52 01/24/20 25 01/23/2025 urina lysis panel , auto Unknown Analyte 6.5 Not Available [facility] With [facility] [address], [place], [address], 01/23/2025 10:37:52 01/24/20 25 01/23/2025 urina lysis panel , auto Unknown Analyte 500 Denny/uL Not Available Replaced by [facility] [place] [facility] [address], [place], [address], 01/23/2025 10:37:52 01/24/20 25 01/23/2025 urina lysis panel , auto Unknown Analyte Negati ve Not Available Replaced by [facility] [place] [facility] [address], [place], [address], 01/23/2025 10:37:52 01/24/20 25 01/23/2025 urina lysis panel , auto Unknown Analyte Trace Not Available [facility] [place] [facility] [address], [place], [address], 01/23/2025 10:37:52 01/24/20 25 01/23/2025 urina lysis panel , auto Unknown Analyte Normal Not Available [facility] [address], [place], [address], 01/23/2025 10:37:52 01/24/20 25 01/23/2025 urina lysis panel , auto Unknown Analyte Negati ve Not Available Replaced by [facility] [place] [facility] [address], [place], [address], 01/23/2025 10:37:52 01/24/20 25 01/23/2025 urina lysis panel , auto Unknown Analyte Normal Not Available [facility] [address], [place], [address], 01/23/2025 10:37:52 01/24/20 25 01/23/2025 urina lysis panel , auto Unknown Analyte Negati ve Not Available Replaced by [facility] [place] [facility] [address], [place], [address], 01/23/2025 10:37:52 01/24/20 25 01/23/2025 urina lysis panel , auto Unknown Analyte Negati ve Not Available [facility] With [facility] [address], [place], [address], 01/23/2025 10:37:52 03/23/20 25 03/23/2025 urina lysis panel , auto Unknown Analyte Clean Catch Not Available [facility] [address], [place], [address], 03/23/2025 14:23:46 03/23/20 25 03/23/2025 urina lysis panel , auto Unknown Analyte Yellow Not Available [facility] [address], [place], [address], 03/23/2025 14:23:46 03/23/20 25 03/23/2025 urina lysis panel , auto Unknown Analyte Clear Not Available [facility] [address], [place], [address], 03/23/2025 14:23:46 03/23/20 25 03/23/2025 urina lysis panel , auto Unknown Analyte 1.010 Not Available [facility] [address], [place], [address], 03/23/2025 14:23:46 03/23/20 25 03/23/2025 urina lysis panel , auto Unknown Analyte 1.003 - 1.030 Not Available [facility] [address], [place], [address], 03/23/2025 14:23:46 03/23/20 25 03/23/2025 urina lysis panel , auto Unknown Analyte 6.0 Not Available [facility] [address], [place], [address], 03/23/2025 14:23:46 03/23/20 25 03/23/2025 urina lysis panel , auto Unknown Analyte 5.0 - 8.0 Not Available [facility]placed [facility] [address], [place], [address], 03/23/2025 14:23:46 03/23/20 25 03/23/2025 urina lysis panel , auto Unknown Analyte Negati ve Not Available [facility] [address], [place], [address], 03/23/2025 14:23:46 03/23/20 25 03/23/2025 urina lysis panel , auto Unknown Analyte Negati ve Not Available [facility]placed [facility] [address], [place], [address], 03/23/2025 14:23:46 03/23/20 25 03/23/2025 urina lysis panel , auto Unknown Analyte Negati ve Not Available [facility]placed [facility] [address], [place], [address], 03/23/2025 14:23:46 03/23/20 25 03/23/2025 urina lysis panel , auto Unknown Analyte Negati ve Not Available [facility] [address], [place], [address], 03/23/2025 14:23:46 03/23/20 25 03/23/2025 urina lysis panel , auto Unknown Analyte Negati ve Not Available [facility] [address], [place], [address], 03/23/2025 14:23:46 03/23/20 25 03/23/2025 urina lysis panel , auto Unknown Analyte Negati ve Not Available [facility] [address], [place], [address], 03/23/2025 14:23:46 03/23/20 25 03/23/2025 urina lysis panel , auto Unknown Analyte Normal Not Available [facility] [address], [place], [address], 03/23/2025 14:23:46 03/23/20 25 03/23/2025 urina lysis panel , auto Unknown Analyte Normal Not Available [facility] With [address], [place], [address], 03/23/2025 14:23:46 03/23/20 25 03/23/2025 urina lysis panel , auto Unknown Analyte Negati ve Not Available [facility] With [address], [place], [address], 03/23/2025 14:23:46 03/23/20 25 03/23/2025 urina lysis panel , auto Unknown Analyte Negati ve Not Available [facility] [address], [place], [address], 03/23/2025 14:23:46 03/23/20 25 03/23/2025 urina lysis panel , auto Unknown Analyte Normal Not Available [facility] [address], [place], [address], 03/23/2025 14:23:46 03/23/20 25 03/23/2025 urina lysis panel , auto Unknown Analyte Normal Not Available [facility] [address], [place], [address], 03/23/2025 14:23:46 03/23/20 25 03/23/2025 urina lysis panel , auto Unknown Analyte Negati ve Not Available [facility] [address], [place], [address], 03/23/2025 14:23:46 03/23/20 25 03/23/2025 urina lysis panel , auto Unknown Analyte Negati ve Not Available [facility] [address], [place], [address], 03/23/2025 14:23:46 03/23/20 25 03/23/2025 urina lysis panel , auto Unknown Analyte Negati ve Not Available [facility] [address], [place], [address], 03/23/2025 14:23:46 03/23/20 25 03/23/2025 urina lysis panel , auto Unknown Analyte Negati ve Not Available [facility] [address], [place], [address], 03/23/2025 14:23:46 02/21/20 25 02/16/2025 XR, abdom en, 1 view No observ ation record ed. [facility] [address], [place], [address], 02/20/2025 08:31:02 03/08/2003/08/2025 XR, abdom en, 1 view No observ ation record ed. [facility] [address], [place], [address], 03/08/2025 16:17:39 04/04/2003/03/2025 CT, abdom en + pelvi s, w/o contr ast No observ ation record ed. [facility] Not Available 2024 16:19:02 Result Notes None recorded. Procedures Surgical History Date Name Laterality Status Provider Name and Address Organization Details Recorded Time 5 EXTRA CORPOREAL SHOCK WAVE LITHOTRIPSY (SURG) completed [facility] 02/27/2025 15:14:32 8 procedure on wrist completed [facility] 01/23/2025 09:56:07 7 delivery completed [facility] 01/23/2025 09:56:18 Imaging Results None recorded. Procedure Notes None recorded. Medical Equipment None Reported. Allergies Allergen ID Allergen Name Allergen Category Reaction Reaction Severity Criticality Documentation Date Start Date Code Code System Note Provider Name and Address Organization Details Recorded Time 673030 Product containin g penicilli n (product) medicatio n Not available Not available Not available 09/26/20162011 93833 8001 SNOMED Comme nt: Creat ed By: Goldy ballard Brand i;Cre ated Date: 012 9:45: 12 AM; Not Available [facility] 6 09:00:36 Medications Name Sig Start Date [...] Updated DateTime 01/23/2025 167.64 cm 25 kg/m2 89712.82 g Cony Quinonez [facility] 01/23/2025 09:57:58 Date Recorded Body height Body mass index (BMI) Body weight Provider Name and Address Organization Details Last Updated DateTime 03/02/2025 167.64 cm 25 kg/m2 78545.82 g Mary Lou Lowery [facility] 03/02/2025 11:40:13 Date Recorded Body height Body mass index (BMI) Body weight Provider Name and Address Organization Details Last Updated DateTime 03/23/2025 167.64 cm 24.5 kg/m2 39876.04 g Roberta Tilley [facility] 03/23/2025 14:08:14 Date Recorded Body height Body mass index (BMI) Body weight Provider Name and Address Organization Details Last Updated DateTime 05/23/2019 167.64 cm 25.7 kg/m2 26357.19 g Libertad Urbina [facility] 05/23/2019 14:45:18 Social History Question Answer Notes LastModified by Organizat ion Details LastModified Time Tobacco Smoking Status Never Smoker Libertad Urbina [facility] 05/23/2019 14:45:46 What Is Your Level Of Caffeine Consumption? Occasional [email or web address] Information not available 05/23/2019 Which Of Your Hands Is Dominant? Bilateral [email or web address] Information not available 05/23/2019 Marital Status [email or web address] Informatio n not available 05/23/2019 What Was The Date Of Your Most Recent Tobacco Screening? 03/23/2025 [email or web address] Information not available 03/23/2025 Has Tobacco Cessation Counseling Been Provided? No [email or web address] Information not available 05/23/2019 Sex: Female Functional Status Question Answer Note LastModified by Organizat ion Details LastModified Time Do you use any illicit or recreational drugs? No Information not available 05/23/2019 What is your level of alcohol consumption? Occasional [email or web address] Information not available 05/23/2019 Are you currently employed? No [email or web address] Information not available 05/23/2019 What is your occupation? Retired [email or web address] Information not available 05/23/2019 Mental Status None recorded. Family History Nothing Reported. Medical History Condition Response Coronary Artery Disease N Other N Gout N Kidney Stones Y Kidney Cyst N Enlarged Prostate N Heart Arrhythmia N Head Trauma/Injury N Erectile Dysfunction N Emphysema N Sexually Transmitted Disease N Depression N COPD N Pneumonia N Incontinence N Prostate Problems N Cancer Prostate N Paralysis N Anxiety Disorder N Hemorrhoids N Obesity N Arthritis Y Infertility N Blood Clot N Acid Reflux (GERD) N Hematuria N Cancer N Stroke N Neck Injury N Previous Radiation Therapy? N Neurologic Disorder N Kidney Disease N Heart Conditions N Migraines N Kidney or Bladder Problems N Skin Problems N Urinary Problems N Constipation N Brain Injury N Ulcers N Rheumatic [...] N Anesthesia Complications N Genitourinary Disease N Radiation Therapy N Chronic Kidney Disease N Bladder or Kidney Problems Y Blood Thinners N Alcohol Overuse/Alcohol Abuse N Back Injury N High Cholesterol Y High PSA N Liver Disease N Nervous System Disorder N Organ Transplant N Dialysis N Allergies/Hayfever N False Teeth N Chronic Obstructive Pulmonary Disease N Parkinson's Disease N Chemotherapy N Transplant N Anemia Y Chest Pain N Back Pain N Multiple Sclerosis N Immune System Disorder Y Proteinuria N Heart Attack (SD) N Mental Illness N Neurological Problems N [...] SNOMED-CT Code Diagnosis ICD10 Code Diagnosis Note [id number] LASHA MCLAUGHLIN MD [facility] [address] [place] [address] 05/23/2019 14:26:28 05/26/2019 09:14:36 Rheumatoid arthritis 53605365 M06.9 Controlled medically but with 3 extensor tendon ruptures and intact FDS to middle and ring fingers. Would benefit from radiolunat e fusion, Jack resection versus DRUJ arthroplas ty, and FDS transfer to the ring and small finger extensor tendons. I will have to research which would be better for someone who plays golf, I will talk to the [employer] team and get back to her, or discussed when she calls to schedule [phone] COSME LIPSCOMB PA-C [facility] [address] [facility] [place] [address] 01/23/2025 09:36:35 01/23/2025 10:35:22 Body mass index 25-29 - overweight 587030947 Z68.25 Kidney stone 31723271 N2 0.0 given stone burden advised procedural management likely R ESWL + right ureteral stent placement, will get Dr. Sepulveda's opinion and get back with patient. Manoj hematuria [id number] 5 R31.0 needs complete workup with cystoscopy + xray IVP vs retrograde pyelograms [id number] FLORESITA SANCHEZ [facility], [facility] [address] [place] [address] 03/02/2025 11:12:52 03/02/2025 11:49:34 [id number] MD CLARE GLOVER JR, [facility] [address] [place] [address] 03/23/2025 13:27:21 03/23/2025 14:28:34 Kidney stone 47242324 N20.0 Health Concerns Section Related Observation LastModified by Organization Detai ls LastModified Time None Recorded Concern Status LastModified by Organization Details LastModified Time None Recorded Advance Directives Directive None Recorded Payers Insurance Date Sequence Insurance Name Policy Number Policy Valdez Covered Member ID Valdez Member ID Guarantor Name 03/02/2025 1 [place] Itzel V McIlvain [id number] Itzel V McIlvain 03/28/2025 2 [employer] SUPPLEMENTAL - [employer]UR[employer] (MEDICARE SUPPLEMENT) Itzel V McIlvain [id number] Itzel V McIlvain Notes Date Note Type [...] helped a lot. LASHA MCLAUGHLIN MD [address] [place], [address], [facility] 05/23/2019 15:16:44 01/23/2025 text/html Ms. Corrigan is [...] last couple weeks COSME LIPSCOMB PA-C [address] [place], [address], [facility] 01/24/2025 14:31:15 03/23/2025 text/html The patient is a 70-year-old female presenting with follow-up post-extracorporeal shock wave lithotripsy. The initial KUB on March 08 indicated a large renal calculus. Post-procedure KUB shows the large calculus has resolved with small remaining stone fragments. No metabolic workup or further intervention planned. Stone-forming risk factors discussed. Follow-up in six months advised. KAITLYN SEPULVEDA JR, MD [address] [place], [address], [facility] 03/27/2025 10:08:38 OBGyn Episode No OBEpisode recorded.
--- OUTSIDE RECORDS SUMMARY | 2025-05-24 14:06 | XMS_ITS | Clinical Summary ---
Author Organization [employer] ([place], [place], [place], [place]) Address [address] [place] [address] Care Team Providers Care Nut Sifter Name Role Phone Unavailable Primary Care Provider [...] Description 02/27/2025 1:34 PM EDT Anesthesia Event [facility] Surgery Department [address] [place] [address] German Maharaj, Chema Estrella MD 02/27/2025 1:31 PM EDT - 02/27/2025 3:04 PM EDT Surgery [facility] Surgery Department [address] [place] [address] Eladio Sutherland Jr., MD RIGHT EXTRACORPOREAL SHOCKWAVE LITHOTRIPSY WITH STENT PLACEMENT 02/27/2025 11:16 AM EDT - 02/27/2025 3:38 PM EDT Hospital Encounter [facility] Surgery Department [address] [place] [address] Eladio Sutherland Jr., MD Kidney stone (Primary [...] Date Melvin rded Speak language other than Austrian at home Not on file 11/20/2023 Want [...] 07/31/2021, 2017 Medical Devices Implanted Type Area Clip Baker Device Identifier Shelf Expiration Date Model / Serial / Lot Stent Uret Percflx + [id number] - [id number] Implanted:Qty: 1 on 02/27/2025 by Eladio Sutherland Jr., MD at [facility] IMPLANTS Right: 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 [employer] 09/23/2027 [id number] 20 / / [id number] Total Wrist Arthroplasty Joints Procedures Procedure Name Priority Date/Time Associated Diagnosis Comments ANESTHESIA INTUBATION Routine 02/27/2025 1:38 PM EDT [place] CYSTO W/INSERT URETERAL STENT 02/27/2025 1:33 PM EDT Uric acid nephrolithiasis Case Notes ESWL CONF [id number] SPOKE TO JOHN [place] LITHOTRIPSY XTRCORP SHOCK WAVE 02/27/2025 1:33 PM EDT Uric acid nephrolithiasis Case Notes ESWL CONF [id number] SPOKE TO JOHN XR ABDOMEN/KUB 1 VW [...] from Last [address] [address] [address] [address] [address] [address] [place] [address]
--- OUTSIDE RECORDS SUMMARY | 2025-05-24 14:06 | XMS_ITS | Encounter Summary ---
Author Organization [employer] ([place], [place], [place], [place]) Address [address] [place] [address] Care Team Providers Care Marine Engineer Cpvec Name Role Phone Unavailable Primary Care Provider Unavailabl e Reason for Visit * Reason Onset Date Comments Copy of form 09/08/2022 Encounter Details Date Type Department Care Team (Late st Contact Info) Description 09/08/2022 Telephone [facility] Primary Care - [address] [address] Madyson Dorado MD [address] [place] [address] Copy of form Social History Tobacco Use [...] Printed and mailed to address on file. 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
--- OUTSIDE RECORDS SUMMARY | 2025-05-24 14:06 | XMS_ITS | Encounter Summary ---
Author Organization [employer] ([place], [place], [place], [place]) Address [address] [place] [address] Care Team Providers Care Special Programs Director Name Role Phone Unavailable Primary Care Provider Unavailabl e Reason for Visit * Reason Onset Date Comments Medication Refill 12/07/2023 Encounter Details Date Type Department Care Team (Late st Contact Info) Description 12/07/2023 Telephone [facility] Rheumatology [address] [place] [address] Madyson Dorado MD [address] [facility] [address] [place] [address] Medication Refill Social History Tobacco Use Types [...] Date Melvin rded Speak language other than Spanish at home Not on file 11/20/2023 Want [...] Radha Aslinger - 12/07/2023 9:19 AM EST [facility] to [phone]. etanercept (EnbreL SureClick) 50 mg/mL (1 mL) PnIj NAUTICAL ENGINEER documented in this encounter Plan of Treatment Not on file documented as of this encounter Visit Diagnoses Not on filedocumented in this encounter
--- NOTE | 2025-05-24 14:39 | EXP.PAIN.SOA ---
[facility] Disclaimer: The information contained in this section may have been updated after the patient was seen, as this information can be updated by other users. Medical History Diverticulosis HTN (hypertension) Hypothyroidism HLD (hyperlipidemia) Rheumatoid arthritis Surgical History H/O left wrist surgery H/O colonoscopy Family History Other COPD (chronic obstructive pulmonary disease) Cancer Heart disease Social History Smoking Status: Never smoker alcohol intake: never substance use type: denies use current occupational status: retired Travel in the last 8 weeks?: None PM Subjective & Objective Subjective Subjective:: Patient is a pleasant 70-year-old female who presents today for worsening low back pain along the right side. Patient rates her pain currently a 4 out of 10 however does state that with prolonged positioning it will go to at least an 8 out of 10. Patient does state this is the same pain that she previously saw us for her back at the end of 2022 and did get injections that significantly improved her symptoms. Patient had previously gotten 75 to 80% relief and states that it lasted from September 08, 2023 up until about 6 weeks ago. Patient denies any specific trauma or injury that initially flared things up. Patient states that she thought it was more manageable and went ahead and started PT. She states that that has helped and they have even done dry needling however she is still having worsening pain that does interfere with her ability perform activities of daily living such as cooking and cleaning. Patient would like to see about scheduling another injection as it did provide some much relief and lasted. Her Tito has been reviewed and is appropriate. Review of Systems: General: No recent weight changes, no fever, no sleep disturbances Respiratory: No cough, no shortness of air, no recurring pulmonary infections Cardiovascular/peripheral vascular: No chest pain, no palpitations, no edema, no shortness of breath Gastrointestinal: No new onset incontinence, normal bowel movements reported Genitourinary: No new onset incontinence Musculoskeletal: Right low back pain, right groin pain Psychiatric: [Normal mood/affect] Neurological: [Denies weakness in extremities], [denies balance issues] Pain at rest (0-10 scale): 8 Objective Objective:: Physical Exam: General: Alert and oriented x3, no acute distress, pleasant and cooperative Lungs: Respirations even and unlabored, symmetrical chest expansion Eyes: PERRL Musculoskeletal: Flexion and extension of lumbar [spine] somewhat guarded secondary to pain, [antalgic gait noted] point tenderness along right SI with positive right Yobani's, Wiliam's, Gaenslen's, compression and distraction exam Neurological: Speech clear, no gross sensory deficit Has patient had previous pain injection?: No Conservative treatment options previously tried: Home exercise plan Length of treatment: Longer than 12 weeks and Physical Therapy Length of treatment: Longer than 4 weeks Meds Home Medications and Allergies Home Medications ?Medication ?Instructions ?Recorded ?Confirmed ?Type aspirin 81 mg tablet,delayed 81 mg PO DAILY 08/13/20 05/09/25 History release (Adult Aspirin Regimen) atorvastatin 20 mg tablet (Lipitor) 20 mg PO DAILY 08/13/20 05/09/25 History etanercept 50 mg/mL (1 mL) 50 mg SQ WEEKLY 08/13/20 05/09/25 History subcutaneous syringe (Enbrel) folic acid 1 mg tablet 2 mg PO DAILY 08/13/20 05/09/25 History ibuprofen 800 mg tablet 800 mg PO Q8H PRN Pain 08/13/20 05/09/25 History levothyroxine 50 mcg tablet 50 mcg PO DAILY 08/13/20 05/09/25 History methotrexate sodium 2.5 mg tablet 7.5 mg PO WEEKLY 08/13/20 05/09/25 History multivitamin,dc-sxhw-eiopfhyc 1 tab PO DAILY 08/13/20 05/09/25 History (Complete Multivitamin tablet) New Prescriptions to Start Prescriptions: Allergies Allergy/AdvReac Type Severity Reaction Status Date / Time Penicillins Allergy Unknown Verified 05/09/25 14:17 Assessment and Plan *Assessment and plan (1) Sacroiliitis: Status: Acute Category: Medical Code(s): M46.1 - Sacroiliitis, not elsewhere classified Plan Patient is experiencing worsening pain along her low back and right hip with limited range of motion. Patient did have point tenderness along her right SI during today's exam. I did discuss with patient that I do believe she would benefit from a right SI injection. Risk and benefits were discussed with the patient and she would like to proceed forward with this plan of care. Patient has had this pain for longer than a year unrelieved with conservative measures such as oral medication, heat and ice, topicals, at home stretching exercise for longer than 12 weeks. Patient has had chronic sacroiliitis with a longstanding history and her last injections were September 2023 that did provide 80% improvement and lasted over a year and a half. Patient has also just recently had physical therapy which did help some however is still having significant pain in this joint space. Patient may be a candidate for future SI fusion. This will be a therapeutic injection with less than 1.5 mL of solution to be injected. I will also order the patient a compounded cream. Patient will be scheduled for a right SI injection under fluoroscopy. Patient has been instructed to contact the clinic with any concerns before the next appointment. Dr. Brice has reviewed this note and agrees with this plan of care. This note was dictated using voice recognition software and make contain errors or omissions. All injections are used with Lidocaine, Bupivacaine and dexamethasone unless diagnostic in which case there is no steroids injected. Occasionally urine drug screen is needed to verify patient's compliance with our office pain contract. This is ordered based off specific treatments related to chronic pain with the potential to abuse certain medications.
[2025-05-24 15:20] VITALS: BP 136/64; PULSE 61; RESP 18; O2SAT 98; BMI 24.5
== END 2025-05-24 23:59 | disposition home or self-care (01) ==
LOC: SC.PAIN 14:02
PROVIDERS: PCP Internal Medicine Adolescent Medicine; Visit Provider Nurse Practitioner Family
DX: M46.1 Sacroiliitis, not elsewhere classified (principal)
CPT/HCPCS: 99212; G0463

== ENCOUNTER 2025-05-30 11:00 | Outpatient (RCR) | payer MEDICARE, OTHER, SELFPAY | END 2025-05-30 23:59 | disposition home or self-care (01) | LOC: PT 11:00 | PROVIDERS: PCP Internal Medicine Adolescent Medicine; Visit Provider Internal Medicine Adolescent Medicine | DX: M54.31 Sciatica, right side (principal) | CPT/HCPCS: 20560; 20561; 97014; 97110; 97140; 97530; G0283 ==

== ENCOUNTER 2025-06-27 10:12 | Day surgery (SDC) | payer MEDICARE, OTHER, SELFPAY ==
[2025-06-27 10:16] VITALS: BP 140/84; PULSE 61; RESP 18; O2SAT 97; BMI 24.5
[2025-06-27 10:24] VITALS: BP 167/76; PULSE 66; RESP 18; O2SAT 98
[2025-06-27] MEDS: LIDOCAINE 1% 5ML PF VIAL 5 ML (10:24)
[2025-06-27] MEDS: DEXAMETHASONE 10MG/ML 1ML VIAL 10 MG (10:24)
[2025-06-27] MEDS: BUPIVACAINE 0.25% 10ML INJ 25 MG IJ (10:24)
[2025-06-27 10:25] VITALS: BP 167/76; PULSE 66; RESP 18; O2SAT 98
[2025-06-27 10:28] VITALS: BP 138/77; PULSE 53; RESP 18; O2SAT 98
--- NOTE | 2025-06-27 10:29 | EXP.PAIN.PRO ---
Procedure Date: 06/27/25 Time: 10:20 Anesthesiologist:: Arun Lozada CRNA Complications:: None Pre-procedure Diagnosis:: Right sacroiliitis Post-procedure Diagnosis:: Same Indications for Procedure:: Patient is a pleasant 70-year-old female who comes our clinic today for right sacroiliac joint injection of cortisone local anesthetic. Patient describes right low lumbar hip pain as constant, dull, aching. She rates her pain 7/10. She reports difficulty with ambulation. Procedure Details:: Procedure: Right sacroliliac joint injection under fluoroscopy Informed consent was obtained and the risk and benefits of the procedure were explained to the patient.~ The patient was taken to the procedure room and noninvasive monitors were placed including noninvasive blood pressure cuff and pulse oximeter.~ The patient was placed prone on the procedure table.~ The~ right hip was cleansed using Betadine as a cleansing solution.~ C-arm fluorosocpy was used to view the right SI joint.~ The skin and subcutaneous tissues were anesthetized using Lidocaine 1.5% and a 25-gauge needle.~ After this, a 22-gauge spinal needle was inserted under fluoroscopic guidance into the inferior aspect of the right SI joint.~ Omnipaque dye was injected and a good spread was seen throughout the joint.~ After this, approximately 5 mL of bupivacaine 0.25% and dexamethasone 10 mg mg was incrementally injected into the sacroiliac joint.~ The patient tolerated the procedure well with no complications.~ The patient was observed in the Pain Clinic, then discharged home neurologically intact.~ Plan and Disposition:: Patient was discharged without incident.
== END 2025-06-27 10:28 | disposition home or self-care (01) ==
LOC: SC.PAINP 10:13
PROVIDERS: PCP Internal Medicine Adolescent Medicine; Visit Provider Nurse Anesthetist, Certified Registered
DX: M46.1 Sacroiliitis, not elsewhere classified (principal); E78.5 Hyperlipidemia, unspecified; E03.9 Hypothyroidism, unspecified; M06.9 Rheumatoid arthritis, unspecified; Z79.890 Hormone replacement therapy; Z79.1 Long term (current) use of non-steroidal anti-inflammatories (NSAID); Z79.899 Other long term (current) drug therapy
CPT/HCPCS: 64450; J0665; J1100; J2003

== ENCOUNTER 2025-07-11 08:40 | Outpatient (CLI) | payer MEDICARE, OTHER, SELFPAY ==
--- NOTE | 2025-07-11 08:43 | XR_ITS ---
FINAL REPORT CLINICAL HISTORY: left knee pain FINDINGS: LEFT KNEE 3 views of the left knee were obtained. There is no acute fracture or dislocation. Visualized joint spaces are normally aligned. There is mild degenerative disease. Soft tissues are unremarkable. IMPRESSION: No acute bony abnormality. Reviewed, Interpreted and Dictated by Lurdes Cary MD Transcribed by Elva Julien Authenticated and . [facility]
== END 2025-07-11 23:59 | disposition home or self-care (01) ==
LOC: RAD 08:41
PROVIDERS: PCP Internal Medicine Adolescent Medicine; Visit Provider Physician Assistant
DX: M25.562 Pain in left knee (principal)
CPT/HCPCS: 73562

== ENCOUNTER 2025-09-05 13:49 | Outpatient (CLI) | payer MEDICARE, OTHER, SELFPAY ==
--- NOTE | 2025-09-05 13:51 | MM_ITS ---
PROCEDURE INFORMATION: Exam: MG Bilateral Screening 3D Mammography Exam date and time: 09/05/2025 1:53 PM Age: 70 years old Clinical indication: Screening examination TECHNIQUE: Imaging protocol: Bilateral Screening tomosynthesis and 2D mammography including computer-aided detection (CAD) when performed. COMPARISON: 1. MG MM DIG SCREENING MAMM BI W/CAD 08/31/2024 2:40 PM 2. MG MM DIG SCREENING MAMM BI W/CAD 08/24/2023 9:58 AM FINDINGS: MAMMOGRAPHY: Breast composition: There are scattered areas of fibroglandular density. Mass: None. Architectural distortion: None. Calcifications: No suspicious calcifications. Asymmetric density: None. Skin thickening: None. Axillary adenopathy: None. IMPRESSION: No mammographic evidence of malignancy. Annual screening is recommended unless otherwise clinically indicated. ASSESSMENT: BI-RADS Category 1: Negative.
--- OUTSIDE RECORDS SUMMARY | 2025-09-05 13:58 | XMS_ITS | Encounter Summary ---
Author Organization [employer] ([place], [place], [place], [place], [place]) Address [address] [place] [address] Care Team Providers Care Boat Loader Name Role Phone Unavailable Primary Care Provider Unavailabl e Reason for Visit * Reason Onset Date Comments Copy of form 09/08/2022 Encounter Details Date Type Department Care Team (Late st Contact Info) Description 09/08/2022 Telephone [facility] Primary [facility] - [address] [id number] Madyson Dorado MD [address] [place] [address] Copy of form Social History Tobacco Use [...] Printed and mailed to address on file. Y CLERK * Telephone Encounter - Deepti Nunezos - 09/08/2022 1:08 PM EST Patient is calling in to see if she can get a copy of her MD-ITel application before send it in she asks that we send a copy to her address confirmed on file. Y CLERK documented in this encounter Plan of Treatment Not on file documented as of this encounter Visit Diagnoses Not on filedocumented in this encounter
--- OUTSIDE RECORDS SUMMARY | 2025-09-05 13:58 | XMS_ITS | Clinical Summary ---
Author Organization [employer] ([place], [place], [place], [place], [place]) Address [address] [place] [address] Care Team Providers Care Facing Baster Name Role Phone Unavailable Primary Care Provider [...] Problem Noted Date Diagnosed Date Hypothyroidism 02/27/2025 Family History Medical History Relation Name Comments [...] Date Melvin rded Speak language other than [place] at home Not on file 11/20/2023 Want [...] - Risk 60-74 years 1-dose series) 2013 Falls Risk Screening 11/02/2024 COVID-19 VACCINE (5 - 2024-2 6 season) 2025 07/30/2022, 06/26/2021, 01/10/2021, Additional history exists Influenza Vaccine (#1) 2025 , 07/31/2021, 07/25/2020, Additional history exists Tobacco Cessation Counseling and Screening (12+) 02/27/2026 02/27/2025 Pneumococcal 50+ years Completed 07/31/2021, 2017 Medical Devices Implanted Type Area Profile Trimmer Device Identifier Shelf Expiration Date Model / Serial / Lot Stent Uret Percflx + [id number] - [id number] Implanted:Qty: 1 on 02/27/2025 by Eladio Sutherland Jr., MD at [facility] IMPLANTS Right: [employer]TA[employer] 09/23/2027 [id number] 20 / / [id number] Total Wrist Arthroplasty [place] [address] [address] [place] [address]
--- OUTSIDE RECORDS SUMMARY | 2025-09-05 13:58 | XMS_ITS | Referral Summary ---
Author Organization [employer] ([place], [place], [place], [place], [place]) Address [address] [place] [address] Care Team Providers Care Real Estate Underwriter Name Role Phone Unavailable Primary Care Provider [...] Date Melvin rded Speak language other than Dutch at home Not on file 11/20/2023 Want [...] on file Medical Devices Implanted Type Area Licensed Surveyor Device Identifier Shelf Expiration Date Model / Serial / Lot Stent Uret Percflx + [id number] - [id number] Implanted:Qty: 1 on 02/27/2025 by Eladio Sutherland Jr., MD at [facility] IMPLANTS Right: [employer] OFFIC[employer] 09/23/2027 [id number] 20 / / [id number] Total Wrist Arthroplasty Joints Insurance MEDICARE PART A B [facility]
== END 2025-09-05 23:59 | disposition home or self-care (01) ==
LOC: RAD 13:50
PROVIDERS: PCP Internal Medicine Adolescent Medicine; Visit Provider Internal Medicine Adolescent Medicine
DX: Z12.31 Encounter for screening mammogram for malignant neoplasm of breast (principal); R92.323 Mammographic fibroglandular density, bilateral breasts
CPT/HCPCS: 77063; 77067

== ENCOUNTER 2025-09-18 08:07 | Outpatient (CLI) | payer MEDICARE, OTHER, SELFPAY ==
[2025-09-18 08:59] LABS: Hematocrit 37.3 % (37.0-47.0); Hemoglobin 12.2 g/dL (12.2-16.2); Immature Granulocytes % 0.2 %; Mean Corpuscular HGB Conc 32.7 g/dL (31.8-35.4); Mean Corpuscular Hemoglobin 30.8 pg (27.0-31.2); Mean Corpuscular Volume 94.2 fl (81-99); Nucleated Red Blood Cells % 0 %; Platelet Count 194 K/mm3 (142-424); Red Blood Count 3.96 M/mm3 (4.20-5.40); Red Cell Distribution Width-SD 46.5 fL; White Blood Count 5.8 K/mm3 (4.8-10.8)
[2025-09-18 09:50] LABS: Alanine Aminotransferase 16 U/L (12-78); Albumin Level 4.4 g/dl (3.5-5.0); Albumin/Globulin Ratio 1.8 (1.1-1.8); Alkaline Phosphatase 74 U/L (38-126); Anion Gap 9.4 mEq/L (5-15); Aspartate Amino Transferase 29 U/L (14-36); Bilirubin,Total 0.7 mg/dl (0.2-1.3); Blood Urea Nitrogen 14 mg/dl (7-17); Calcium 9.8 mg/dl (8.4-10.2); Carbon Dioxide 28 mmol/L (22.0-30.0); Chloride 104 mmol/L (98-107); Cholesterol 195 mg/dl (140-200); Creatinine,Serum 0.80 mg/dl (0.52-1.04); Estimated Glomerular Filt Rate 71 ml/min (>60); GFR (African American) 85 ML/MIN (>60); Globulin 2.4 g/dL (1.3-3.2); Glucose 94 mg/dl (74-100); HDL Cholesterol 71 mg/dl (40-60); Potassium 4.4 mmoL/L (3.5-5.1); Sodium 137 mmol/L (136-145); Total Protein,Serum 6.8 g/dl (6.3-8.2); Triglycerides 134 mg/dl (30-150)
[2025-09-18 10:22] LABS: Thyroid Stimulating Hormone 2.63 uIU/mL (0.465-4.68)
== END 2025-09-18 23:59 | disposition home or self-care (01) ==
LOC: LAB 08:10
PROVIDERS: PCP Internal Medicine Adolescent Medicine; Visit Provider Nurse Practitioner Family
DX: E03.9 Hypothyroidism, unspecified (principal); M05.9 Rheumatoid arthritis with rheumatoid factor, unspecified; E78.5 Hyperlipidemia, unspecified
CPT/HCPCS: 36415; 80053; 80061; 84443; 85025